=== PATIENT | male | born 1970 | race Hispanic/Latino ===

== ENCOUNTER 2016-05-23 12:25 | Day surgery (SDC) | payer BC ==
[~2016-05-23] VITALS: Ht 160 cm; Wt 65.7 kg
[~2016-05-23 12:25] MED LIST: ALCOHOL SWAB1 EACH TP; AMLODIPINE BESY10 MG PO; APRESOLINE25 MG PO; ASPIR 8181 M1 PO; ASPIR-LOW81 MG PO; ATORVASTATIN CA80 MG GT; ATORVASTATIN CA80 MG PO; BENADRYL25 MG PO; CALCITRIOL0.25 MCG PO; CALCIUM ACETAT667 M2 PO; CALCIUM ACETAT667 MG PO; CASTIVA COOLIN113 GM TP; CATAPRES0.1 MG PO; CATAPRES0.3 MG PO; CLONIDINE HCL0.1 MG PO; CLONIDINE HCL0.2 MG PO; CLONIDINE HCL0.3 MG PO; COMPAZINE10 MG PO; COREG25 M1 PO; COUMADIN2.5 MG PO; CRESTOR20 MG PO; DILANTIN100 MG PO; ENDOCET 5-3251 EACH PO; ERGOCALCIF50000 UNIT PO; GLUCOPHAGE500 MG PO; HEPARIN SO5000 UNITS SC; HYDRALAZINE HCL25 MG PO; HYDROCODON-ACE1 EAC7 PO; HYDROXYZINE PAM25 MG PO; LABETALOL HCL200 MG PO; LANTUS 3 M100 UNITS1 SC; LASIX40 MG PO; LEVEMIR FL100 UNIT/1 SC; LEVEMIR100 UNIT/2 SC; LEVETIRACETAM500 MG PO; LIPITOR80 MG PO; LISINOPRIL10 MG PO; LISINOPRIL20 MG PO; LO-DOSE ASPIRIN81 M1 PO; LONITEN2.5 MG PO; LOSARTAN POTASS50 MG PO; MINOXIDIL2.5 MG PO; MYCOSTATIN 100,60 ML PO; NEPHRO-VITE,1 TABLET PO; NEURONTIN400 MG PO; NOHOMEMEDS; NORVASC10 MG PO; NOVOLIN NPH,HU1 UNIT SC; NOVOLIN,HU100 UNITS/ SC; NOVOLIN,HU100 UNITS1 SC; NOVOLOG 10100 UNITS/ SC; NOVOLOG PE100 UNITS/ SC; PERCOCET 10/1 TABLET PO; PERCOCET 5/31 TABLET PO; PRINIVIL20 MG PO; PROAIR HFA8.5 GM IH; RELION MICRO MC; RELION THIN MC; RENA-VITE RX T1 EACH PO; ROCALTROL0.25 MCG PO; ROXICODONE5 MG PO; TRAMADOL HCL50 MG PO; TYLENOL EXTRA500 MG PO; TYLENOL REGULA325 MG PO; Tums,OsCal PO; VALSARTAN160 MG PO; VANCOMYCIN HCL1 GM IV; VENOFER100 MG/5 M IV; VICODIN,LORT1 TABLET PO; VISTARIL25 MG PO; VITAMIN D2000 UNIT PO; ZESTRIL40 MG PO; Zestril,Prinivil PO
[2016-05-23 12:55] VITALS: BP 185/99
[2016-05-23 13:44] LABS: EOSINOPHIL (%) 1.8 % (0-5); EOSINOPHIL COUNT 0.1 K/uL (0-0.3); HEMATOCRIT 28.7 % (38.0-50.0); IMMATURE GRANULOCYTE (%) 0.4 % (0.0-0.7); LYMPHOCYTE COUNT 0.7 K/uL (1.0-2.8); MCH 30.6 PG (29.0-34.0); MCHC 34.1 G/DL (30.0-36.0); MCV 89.7 FL (86-99); MEAN PLAT.VOLUME 11.2 uM^3 (9.0-12.4); MONOCYTE (%) 9.3 % (3-12); MONOCYTE COUNT 0.3 K/uL (0-0.8); NEUTROPHIL (%) 61.3 % (45-76); NEUTROPHIL COUNT 1.7 K/uL (1.8-6.4); PLATELET COUNT 149 K/uL (156-360); RBC DIS.WIDTH-CV 14.8 % (11.8-14.6); RBC DIS.WIDTH-SD 45.7 % (39-53); WHITE BLOOD COUNT 2.8 K/uL (4.1-10.2)
[2016-05-23 14:08] LABS: ANION GAP 13 MEQ/L (2-14); CHLORIDE 96 MEQ/L (99-109); GFR ESTIMATE (CALCULATED) 14 mL/min/; GLUCOSE 99 mg/dL (70-99); POTASSIUM 4.4 MEQ/L (3.7-5.4); SAMPLE HEMOLYSIS CHECK 0; SAMPLE ICTERIC CHECK 0; SAMPLE LIPEMIA CHECK 0; SODIUM 140 MEQ/L (136-147); UREA NITROGEN (BUN) 27 mg/dL (9-23)
[2016-05-23 15:02] LABS: METH RESISTANT S AUREUS PCR NEGATIVE (NEGATIVE)
[2016-05-23 15:13] LABS: PROBE CHECK PASS; SPECIMEN PROCESSING CONTROL PASS
[2016-05-23 17:14] LABS: POINT-OF-CARE METER ID UU13113675
[2016-05-23] MEDS ORDERED: OXAYDO5 MG PO (18:39)
[2016-05-23 20:32] LABS: POINT-OF-CARE METER ID UU13113675
[2016-05-23 21:43] VITALS: BP 173/90
== END 2016-05-23 22:38 | disposition home or self-care (01) ==
LOC: SDC 12:25
PROVIDERS: Surgery
DX: I12.0 Hypertensive chronic kidney disease with stage 5 chronic kidney disease or end stage renal disease (principal); E11.22 Type 2 diabetes mellitus with diabetic chronic kidney disease; N18.6 End stage renal disease; Z99.2 Dependence on renal dialysis; I97.638 Postprocedural hematoma of a circulatory system organ or structure following other circulatory system procedure; Z79.4 Long term (current) use of insulin
CPT/HCPCS: 80048; 82948; 85025; 87641; C1768; J0131; J0360; J0690; J1170; J1644; J2250; J2405; J2720; J2765; J3010; P9045

== ENCOUNTER 2016-06-17 08:39 | Inpatient (IN) | payer BC ==
[2016-06-17] VITALS (15 sets, daily range): BP systolic 119–195; BP diastolic 63–101
[~2016-06-17] VITALS: Ht 160 cm; Wt 61.9 kg
[~2016-06-17 08:39] MED LIST changes: +OXAYDO5 MG PO
[2016-06-17 08:56] LABS: BASE EXCESS 5.3 mEq/L (-3 to +3); CARBOXY HGB 1.9 % (0-5); COMMENTS - BLOOD GASES A+C+; CONTINUOUS POS AIRWAY PRESSURE 8 cm H2O; DEVICE NIV; FI02 100 %; METHEMOGLOBIN 0.8 % (0-1.5); MODE SPONT; PCO2 50 mm Hg (35-45); PO2 92 mm Hg (80-100); PRES. SUPPORT 10 CM/H2O; SITE RR; TOTAL RESP RATE 33 resp/min
[2016-06-17 09:15] LABS: ANION GAP 15 MEQ/L (2-14); CHLORIDE 98 mEq/L (99-109); CREATININE 7.2 mg/dL (0.6-1.3); GLUCOSE 108 mg/dL (70-99); ISTAT DEVICE 369301; POTASSIUM > 6.0 mEq/L (3.7-5.4); SODIUM 137 mEq/L (136-147); UREA NITROGEN (BUN) 36 mg/dL (9-23)
[2016-06-17 09:18] LABS: BASOPHIL COUNT 0.1 K/uL (0-0.1); EOSINOPHIL (%) 1.7 % (0-5); EOSINOPHIL COUNT 0.1 K/uL (0-0.3); HEMATOCRIT 33.9 % (38.0-50.0); IMMATURE GRANULOCYTE (%) 0.3 % (0.0-0.7); INSTRUMENT ABS NEUTROPHIL CT 5.9 K/uL; LYMPHOCYTE COUNT 0.8 K/uL (1.0-2.8); MCHC 32.4 G/DL (30.0-36.0); MEAN PLAT.VOLUME 10.2 uM^3 (9.0-12.4); MONOCYTE (%) 4.2 % (3-12); MONOCYTE COUNT 0.3 K/uL (0-0.8); NEUTROPHIL COUNT 5.9 K/uL (1.8-6.4); RBC DIS.WIDTH-CV 16.8 % (11.8-14.6); RBC DIS.WIDTH-SD 62.5 % (39-53); RED BLOOD COUNT 3.33 M/uL (4.00-5.50)
[2016-06-17 09:20] LABS: MCV 101.8 FL (86-99); PLATELET COUNT 250 K/uL (156-360); WHITE BLOOD COUNT 7.2 K/uL (4.1-10.2)
[2016-06-17 09:27] LABS: CHLORIDE 98 mEq/L (99-109); INTER. NORMALIZED RATIO 1.1; PROTHROMBIN TIME 10.7 (9.2-11.2); SODIUM 140 mEq/L (136-147)
[2016-06-17 09:29] LABS: GLUCOSE 107 mg/dL (70-99)
[2016-06-17 09:30] LABS: ANION GAP 14 MEQ/L (2-14)
[2016-06-17 09:31] LABS: TOTAL BILIRUBIN 0.5 mg/dL (0.0-1.0)
[2016-06-17 09:32] LABS: ALKALINE PHOSPHATASE 231 IU/L (3-129)
[2016-06-17 09:33] LABS: GFR ESTIMATE (CALCULATED) 8 mL/min/
[2016-06-17 09:34] LABS: UREA NITROGEN (BUN) 35 mg/dL (9-23)
[2016-06-17 09:37] LABS: POTASSIUM 6.4 mEq/L (3.7-5.4)
[2016-06-17 09:38] LABS: TROP-I INTERPRETATION NEGATIVE; TROPONIN-I < 0.01 ng/mL (0.0-0.30)
[2016-06-17 14:39] LABS: METH RESISTANT S AUREUS PCR NEGATIVE (NEGATIVE); PROBE CHECK PASS; SPECIMEN PROCESSING CONTROL PASS
[2016-06-17] MEDS ORDERED: LIPITOR80 MG PO (17:37)
[2016-06-17] MEDS ORDERED: APRESOLINE25 MG PO (17:38)
[2016-06-17] MEDS ORDERED: COMPAZINE10 MG PO (17:38)
[2016-06-17] MEDS ORDERED: LANTUS 3 M100 UNITS1 SC (17:39)
[2016-06-17] MEDS ORDERED: RENA-VITE RX T1 EACH PO (17:40)
[2016-06-17] MEDS ORDERED: ZESTRIL40 MG PO (17:40)
[2016-06-17] MEDS ORDERED: LO-DOSE ASPIRIN81 M2 PO (17:41)
[2016-06-17] MEDS ORDERED: NORVASC10 MG PO (17:41)
[2016-06-17] MEDS ORDERED: ULTRAM50 MG PO (17:41)
[2016-06-17] MEDS ORDERED: NOVOLOG PE100 UNITS/ SC (17:41)
[2016-06-17] MEDS ORDERED: LONITEN2.5 MG PO (17:42)
[2016-06-17] MEDS ORDERED: PROAIR HFA8.5 GM IH (17:42)
[2016-06-17] MEDS ORDERED: DILANTIN100 MG PO (17:42)
[2016-06-17] MEDS ORDERED: CATAPRES0.3 MG PO (17:42)
[2016-06-17] MEDS ORDERED: ALLERGY RELIEF10 M1 PO (17:43)
[2016-06-17] MEDS ORDERED: DERMACINRX EMP1 EACH TP (17:45)
[2016-06-17] MEDS ORDERED: PERCOCET 5/31 TABLET PO (17:46)
[2016-06-17 23:49] LABS: POINT-OF-CARE METER ID UU14162636
[2016-06-18] VITALS (9 sets, daily range): BP systolic 155–194; BP diastolic 80–107
[2016-06-18 07:35] LABS: POINT-OF-CARE METER ID UU14174216
[2016-06-18 10:04] LABS: Estimated Average Glucose 100 mg/dL (70-123)
[2016-06-18 10:05] LABS: HEMOGLOBIN A1c (GLYCOHEMOGLOB) 5.1 % HGB (Below 5.7)
[2016-06-18 10:57] LABS: HEMATOCRIT 27.3 % (38.0-50.0); MCH 32.6 PG (29.0-34.0); MCHC 32.6 G/DL (30.0-36.0); RBC DIS.WIDTH-CV 16.5 % (11.8-14.6); RBC DIS.WIDTH-SD 60.2 % (39-53); RED BLOOD COUNT 2.73 M/uL (4.00-5.50); WHITE BLOOD COUNT 5.2 K/uL (4.1-10.2)
[2016-06-18 11:02] LABS: ALKALINE PHOSPHATASE 189 IU/L (3-129); ANION GAP 9 MEQ/L (2-14); CHLORIDE 99 MEQ/L (99-109); GFR ESTIMATE (CALCULATED) 10 mL/min/; POTASSIUM 5.4 MEQ/L (3.7-5.4); SAMPLE HEMOLYSIS CHECK 0; SAMPLE ICTERIC CHECK 0; SAMPLE LIPEMIA CHECK 0; SODIUM 137 MEQ/L (136-147); TOTAL BILIRUBIN 0.5 MG/DL (0.0-1.0); UREA NITROGEN (BUN) 37 mg/dL (9-23)
[2016-06-18 11:05] LABS: GLUCOSE 203 mg/dL (70-99)
[2016-06-18 11:27] LABS: MEAN PLAT.VOLUME 10.3 uM^3 (9.0-12.4); PLAT.SUFFICIENCY ADEQUATE
[2016-06-18 11:29] LABS: PLATELET COUNT 170 K/uL (156-360)
[2016-06-18 15:58] LABS: TYPE OF FLUID PLEURAL
[2016-06-18 16:33] LABS: POINT-OF-CARE METER ID UU14174216
[2016-06-18 16:35] LABS: BODY FLUID LDH 103 IU/L; BODY FLUID PROTEIN 3.5 G/DL
[2016-06-18 17:48] LABS: GLUCOSE 136 mg/dL (70-99); LACTATE DEHYDROGENASE 215 IU/L (20-246)
[2016-06-18 18:04] LABS: BODY FLUID EOSINOPHILS 0 % (0-25); BODY FLUID RBC'S < 1000 /MM^3 (0-100); BODY FLUID WBC'S 286 /MM^3 (0-500); MONONUCLEAR WBC'S 0 %; POLYNUCLEAR WBC'S 100 % (0-25)
[2016-06-18 21:08] LABS: POINT-OF-CARE METER ID UU14174216
[2016-06-19] VITALS (7 sets, daily range): BP systolic 127–191; BP diastolic 58–91
[2016-06-19 05:53] LABS: HEMATOCRIT 29.3 % (38.0-50.0); MCH 31.9 PG (29.0-34.0); MCHC 33.1 G/DL (30.0-36.0); MCV 96.4 FL (86-99); MEAN PLAT.VOLUME 10.6 uM^3 (9.0-12.4); PLATELET COUNT 189 K/uL (156-360); RBC DIS.WIDTH-CV 15.7 % (11.8-14.6); RBC DIS.WIDTH-SD 55.7 % (39-53); RED BLOOD COUNT 3.04 M/uL (4.00-5.50); WHITE BLOOD COUNT 4.9 K/uL (4.1-10.2)
[2016-06-19 06:45] LABS: ANION GAP 11 MEQ/L (2-14); CHLORIDE 96 MEQ/L (99-109); GFR ESTIMATE (CALCULATED) 13 mL/min/; SAMPLE HEMOLYSIS CHECK 0; SAMPLE ICTERIC CHECK 0; SAMPLE LIPEMIA CHECK 0; SODIUM 137 MEQ/L (136-147); UREA NITROGEN (BUN) 27 mg/dL (9-23)
[2016-06-19 06:52] LABS: GLUCOSE 77 mg/dL (70-99); POTASSIUM 3.7 MEQ/L (3.7-5.4)
[2016-06-19 07:53] LABS: POINT-OF-CARE USER ID ENVKC36
[2016-06-19 11:16] LABS: POINT-OF-CARE METER ID UU14162508
[2016-06-19 15:53] LABS: POINT-OF-CARE METER ID UU14162508
[2016-06-19 21:33] LABS: POINT-OF-CARE METER ID UU14162508
[2016-06-20 03:34] VITALS: BP 143/69
[2016-06-20 06:45] LABS: POINT-OF-CARE METER ID UU14162508
[2016-06-20 07:31] LABS: HEMATOCRIT 30.1 % (38.0-50.0); MCH 32.6 PG (29.0-34.0); MCHC 33.9 G/DL (30.0-36.0); MCV 96.2 FL (86-99); MEAN PLAT.VOLUME 10.8 uM^3 (9.0-12.4); PLATELET COUNT 201 K/uL (156-360); RBC DIS.WIDTH-CV 15.7 % (11.8-14.6); RBC DIS.WIDTH-SD 55.3 % (39-53); RED BLOOD COUNT 3.13 M/uL (4.00-5.50); WHITE BLOOD COUNT 4.3 K/uL (4.1-10.2)
[2016-06-20 07:38] LABS: ANION GAP 14 MEQ/L (2-14); CHLORIDE 92 MEQ/L (99-109); GFR ESTIMATE (CALCULATED) 9 mL/min/; GLUCOSE 157 mg/dL (70-99); POTASSIUM 3.8 MEQ/L (3.7-5.4); SAMPLE HEMOLYSIS CHECK 0; SAMPLE ICTERIC CHECK 0; SAMPLE LIPEMIA CHECK 0; SODIUM 136 MEQ/L (136-147); UREA NITROGEN (BUN) 46 mg/dL (9-23)
[2016-06-20 07:58] VITALS: BP 185/95
[2016-06-20 10:47] LABS: HBSG INDEX 0.16
[2016-06-20 15:09] VITALS: BP 117/60
[2016-06-20 17:37] LABS: POINT-OF-CARE METER ID UU14162508
[2016-06-20 18:28] VITALS: BP 169/86
[2016-06-20 19:39] VITALS: BP 187/84
[2016-06-20 23:41] VITALS: BP 137/65
[2016-06-21 03:35] VITALS: BP 135/70
[2016-06-21 06:40] LABS: POINT-OF-CARE METER ID UU14162508
[2016-06-21 07:10] VITALS: BP 143/73
[2016-06-21 11:48] LABS: POINT-OF-CARE METER ID UU14162508
[2016-06-21 16:45] LABS: POINT-OF-CARE METER ID UU14162508
[2016-06-21 16:46] VITALS: BP 139/68
[2016-06-21] MEDS ORDERED: LONITEN2.5 MG PO (20:02)
[2016-06-21] MEDS ORDERED: LABETALOL HCL200 MG PO (20:02)
[2016-06-21] MEDS ORDERED: CALCIUM ACETAT667 MG PO (20:03)
[2016-06-21 21:26] LABS: POINT-OF-CARE METER ID UU14162508
[2016-06-21 23:05] VITALS: BP 119/62
[2016-06-22 06:45] LABS: POINT-OF-CARE METER ID UU14162508
[2016-06-22 06:57] VITALS: BP 155/82
[2016-06-22 10:31] LABS: BASOPHIL COUNT 0.1 K/uL (0-0.1); EOSINOPHIL (%) 4.8 % (0-5); EOSINOPHIL COUNT 0.3 K/uL (0-0.3); HEMATOCRIT 29.7 % (38.0-50.0); IMMATURE GRANULOCYTE (%) 0.4 % (0.0-0.7); INSTRUMENT ABS NEUTROPHIL CT 3.6 K/uL; LYMPHOCYTE COUNT 0.8 K/uL (1.0-2.8); MCH 32.6 PG (29.0-34.0); MCHC 34.7 G/DL (30.0-36.0); MONOCYTE (%) 9.2 % (3-12); MONOCYTE COUNT 0.5 K/uL (0-0.8); NEUTROPHIL (%) 68.2 % (45-76); NEUTROPHIL COUNT 3.6 K/uL (1.8-6.4); RBC DIS.WIDTH-CV 15.1 % (11.8-14.6); RBC DIS.WIDTH-SD 52.2 % (39-53); RED BLOOD COUNT 3.16 M/uL (4.00-5.50); WHITE BLOOD COUNT 5.2 K/uL (4.1-10.2)
[2016-06-22 10:43] LABS: ANION GAP 14 MEQ/L (2-14); CHLORIDE 92 MEQ/L (99-109); GFR ESTIMATE (CALCULATED) 8 mL/min/; GLUCOSE 124 mg/dL (70-99); POTASSIUM 4.7 MEQ/L (3.7-5.4); SAMPLE HEMOLYSIS CHECK 0; SAMPLE ICTERIC CHECK 0; SAMPLE LIPEMIA CHECK 0; SODIUM 131 MEQ/L (136-147); UREA NITROGEN (BUN) 45 mg/dL (9-23)
[2016-06-22 11:35] LABS: MEAN PLAT.VOLUME 11.4 uM^3 (9.0-12.4); PLATELET COUNT 172 K/uL (156-360)
[2016-06-22 15:28] VITALS: BP 123/63
[2016-06-22 17:13] LABS: POINT-OF-CARE METER ID UU14162508
[2016-06-22 21:16] LABS: POINT-OF-CARE METER ID UU14162508
[2016-06-23 00:25] VITALS: BP 115/64
[2016-06-23 06:53] LABS: POINT-OF-CARE METER ID UU14162508
[2016-06-23 08:19] VITALS: BP 132/84
[2016-06-23 12:02] LABS: POINT-OF-CARE METER ID UU14162508
[2016-06-23 15:55] VITALS: BP 172/92
== END 2016-06-23 16:30 | disposition home health service (06) | DRG 682 ==
LOC: EME → EDBD 08:39 → EDOF 11:59 → 4EAST 11:59 → 2EAST 11:59 → 4WEST 13:23 → 4EAST 06-18 05:27 → 2EAST 06-19 09:20
PROVIDERS: Emergency Medicine; Hospitalist; Internal Medicine; Internal Medicine Critical Care Medicine; Physician Assistant; Student in an Organized Health Care Education/Training Program
PROC: 5A09357 Assistance with Respiratory Ventilation, Less than 24 Consecutive Hours, Continuous Positive Airway Pressure (ICD-10-PCS; principal; 2016-06-17)
PROC: 5A1D60Z (ICD-10-PCS; 2016-06-17)
PROC: 0W9B3ZZ Drainage of Left Pleural Cavity, Percutaneous Approach (ICD-10-PCS; 2016-06-18)
PROC: 0W9B30Z Drainage of Left Pleural Cavity with Drainage Device, Percutaneous Approach (ICD-10-PCS; 2016-06-20)
PROC: 02PA33Z Removal of Infusion Device from Heart, Percutaneous Approach (ICD-10-PCS; 2016-06-21)
DX: N17.9 Acute kidney failure, unspecified (principal); J96.01 Acute respiratory failure with hypoxia; N18.6 End stage renal disease; I16.0 Hypertensive urgency; I13.2 Hypertensive heart and chronic kidney disease with heart failure and with stage 5 chronic kidney disease, or end stage renal disease; E11.22 Type 2 diabetes mellitus with diabetic chronic kidney disease; D63.1 Anemia in chronic kidney disease; Z99.2 Dependence on renal dialysis; I50.9 Heart failure, unspecified; K21.9 Gastro-esophageal reflux disease without esophagitis; G40.909 Epilepsy, unspecified, not intractable, without status epilepticus; J45.909 Unspecified asthma, uncomplicated; Z79.4 Long term (current) use of insulin; Z79.82 Long term (current) use of aspirin; Z86.73 Personal history of transient ischemic attack (TIA), and cerebral infarction without residual deficits; I08.1 Rheumatic disorders of both mitral and tricuspid valves; D50.9 Iron deficiency anemia, unspecified; I27.2 Other secondary pulmonary hypertension; J90 Pleural effusion, not elsewhere classified; N25.81 Secondary hyperparathyroidism of renal origin; E11.42 Type 2 diabetes mellitus with diabetic polyneuropathy; Z91.19 Patient's noncompliance with other medical treatment and regimen; Z87.891 Personal history of nicotine dependence
CPT/HCPCS: 36600; 71010; 71020; 80047; 80048; 80053; 80069; 82140; 82803; 82945; 82947 91; 82948; 83036; 83605; 83615; 83615 91; 83880; 83986 90; 84100; 84155; 84157; 84484; 84999; 85025; 85027; 85610; 87070; 87205; 87340; 87641; 89051; 93005; 94002; 99281; 99285; C1729; J0610; J0881; J1270; J1644; J1756; J1815; J2405; J3010; J7050; Q0164

== ENCOUNTER 2016-07-04 12:38 | Emergency (ER) | payer BC ==
[~2016-07-04] VITALS: Ht 190.5 cm; Wt 61.0 kg
[~2016-07-04 12:38] MED LIST changes: +ALLERGY RELIEF10 M1 PO; +DERMACINRX EMP1 EACH TP; +LO-DOSE ASPIRIN81 M2 PO; +ULTRAM50 MG PO
[2016-07-04 14:10] LABS: EOSINOPHIL (%) 0.4 % (0-5); HEMATOCRIT 30.8 % (38.0-50.0); IMMATURE GRANULOCYTE (%) 0.2 % (0.0-0.7); INSTRUMENT ABS NEUTROPHIL CT 3.8 K/uL; LYMPHOCYTE COUNT 0.2 K/uL (1.0-2.8); MCH 31.6 PG (29.0-34.0); MCHC 33.8 G/DL (30.0-36.0); MCV 93.6 FL (86-99); MEAN PLAT.VOLUME 10.2 uM^3 (9.0-12.4); MONOCYTE (%) 7.2 % (3-12); MONOCYTE COUNT 0.3 K/uL (0-0.8); NEUTROPHIL (%) 86.1 % (45-76); NEUTROPHIL COUNT 3.8 K/uL (1.8-6.4); PLATELET COUNT 217 K/uL (156-360); RBC DIS.WIDTH-CV 13.2 % (11.8-14.6); RED BLOOD COUNT 3.29 M/uL (4.00-5.50); WHITE BLOOD COUNT 4.5 K/uL (4.1-10.2)
[2016-07-04 14:18] LABS: CHLORIDE 92 mEq/L (99-109); POTASSIUM 3.8 mEq/L (3.7-5.4); SODIUM 135 mEq/L (136-147)
[2016-07-04 14:20] LABS: GLUCOSE 257 mg/dL (70-99)
[2016-07-04 14:22] LABS: ANION GAP 14 MEQ/L (2-14)
[2016-07-04 14:24] LABS: GFR ESTIMATE (CALCULATED) 19 mL/min/
[2016-07-04 14:25] LABS: UREA NITROGEN (BUN) 22 mg/dL (9-23)
[2016-07-04 14:31] LABS: TROP-I INTERPRETATION NEGATIVE; TROPONIN-I < 0.01 ng/mL (0.0-0.30)
[2016-07-04] MEDS ORDERED: TRAMADOL HCL50 MG PO (20:38)
[2016-07-04 20:52] VITALS: BP 147/80
== END 2016-07-04 20:53 | disposition home or self-care (01) ==
LOC: EME → EDBD 12:38 → EME 12:38
PROVIDERS: Physician Assistant
DX: J90 Pleural effusion, not elsewhere classified (principal); T85.898A Other specified complication of other internal prosthetic devices, implants and grafts, initial encounter; N19 Unspecified kidney failure; E11.65 Type 2 diabetes mellitus with hyperglycemia; Z99.2 Dependence on renal dialysis; I11.0 Hypertensive heart disease with heart failure; I50.9 Heart failure, unspecified; Z86.73 Personal history of transient ischemic attack (TIA), and cerebral infarction without residual deficits; Z79.84 Long term (current) use of oral hypoglycemic drugs
CPT/HCPCS: 71010; 71250; 80048; 81003; 83605; 84484; 85025; 93005; 99281; 99285; J2270; J2997

== ENCOUNTER 2016-07-11 17:37 | Inpatient (IN) | payer BC ==
[~2016-07-11] VITALS: Ht 167.6 cm; Wt 62.6 kg
[2016-07-11 18:58] LABS: EOSINOPHIL (%) 0.9 % (0-5); EOSINOPHIL COUNT 0.1 K/uL (0-0.3); HEMATOCRIT 25.9 % (38.0-50.0); IMMATURE GRANULOCYTE (%) 0.4 % (0.0-0.7); INSTRUMENT ABS NEUTROPHIL CT 5.6 K/uL; LYMPHOCYTE COUNT 0.8 K/uL (1.0-2.8); MCH 30.8 PG (29.0-34.0); MCHC 32.8 G/DL (30.0-36.0); MCV 93.8 FL (86-99); MEAN PLAT.VOLUME 10.1 uM^3 (9.0-12.4); MONOCYTE (%) 8.8 % (3-12); MONOCYTE COUNT 0.6 K/uL (0-0.8); NEUTROPHIL (%) 78.7 % (45-76); NEUTROPHIL COUNT 5.6 K/uL (1.8-6.4); PLATELET COUNT 305 K/uL (156-360); RBC DIS.WIDTH-CV 13.5 % (11.8-14.6); RBC DIS.WIDTH-SD 46.3 % (39-53); RED BLOOD COUNT 2.76 M/uL (4.00-5.50); WHITE BLOOD COUNT 7.1 K/uL (4.1-10.2)
[2016-07-11 19:07] LABS: CHLORIDE 96 mEq/L (99-109); POTASSIUM 3.8 mEq/L (3.7-5.4); SODIUM 140 mEq/L (136-147)
[2016-07-11 19:10] LABS: GLUCOSE 185 mg/dL (70-99)
[2016-07-11 19:11] LABS: ANION GAP 13 MEQ/L (2-14)
[2016-07-11 19:12] LABS: TOTAL BILIRUBIN 0.4 mg/dL (0.0-1.0)
[2016-07-11 19:13] LABS: ALKALINE PHOSPHATASE 112 IU/L (3-129); GFR ESTIMATE (CALCULATED) 18 mL/min/
[2016-07-11 19:14] LABS: UREA NITROGEN (BUN) 16 mg/dL (9-23)
[2016-07-11 19:19] LABS: TROP-I INTERPRETATION NEGATIVE; TROPONIN-I < 0.01 ng/mL (0.0-0.30)
[2016-07-11] MEDS ORDERED: AMOX TR-K CLV1 EAC4 PO (22:57)
[2016-07-12] VITALS (8 sets, daily range): BP systolic 101–210; BP diastolic 56–100
[2016-07-12 07:07] LABS: POINT-OF-CARE METER ID UU14149397
[2016-07-12 10:06] LABS: ANION GAP 8 MEQ/L (2-14); CHLORIDE 93 MEQ/L (99-109); GFR ESTIMATE (CALCULATED) 13 mL/min/; GLUCOSE 239 mg/dL (70-99); POTASSIUM 4.4 MEQ/L (3.7-5.4); SAMPLE HEMOLYSIS CHECK 0; SAMPLE ICTERIC CHECK 0; SAMPLE LIPEMIA CHECK 0; SODIUM 135 MEQ/L (136-147)
[2016-07-12 10:07] LABS: UREA NITROGEN (BUN) 25 mg/dL (9-23)
[2016-07-12 12:08] LABS: POINT-OF-CARE METER ID UU14149397
[2016-07-13 05:01] VITALS: BP 178/86
[2016-07-13 05:34] LABS: BASOPHIL COUNT 0.1 K/uL (0-0.1); EOSINOPHIL (%) 4.1 % (0-5); EOSINOPHIL COUNT 0.3 K/uL (0-0.3); HEMATOCRIT 27.3 % (38.0-50.0); IMMATURE GRANULOCYTE (%) 0.5 % (0.0-0.7); INSTRUMENT ABS NEUTROPHIL CT 5.7 K/uL; LYMPHOCYTE COUNT 0.9 K/uL (1.0-2.8); MCHC 32.2 G/DL (30.0-36.0); MCV 96.1 FL (86-99); MEAN PLAT.VOLUME 9.8 uM^3 (9.0-12.4); MONOCYTE (%) 7.7 % (3-12); MONOCYTE COUNT 0.6 K/uL (0-0.8); NEUTROPHIL (%) 75.4 % (45-76); NEUTROPHIL COUNT 5.7 K/uL (1.8-6.4); PLATELET COUNT 320 K/uL (156-360); RBC DIS.WIDTH-CV 13.9 % (11.8-14.6); RBC DIS.WIDTH-SD 49.1 % (39-53); RED BLOOD COUNT 2.84 M/uL (4.00-5.50); WHITE BLOOD COUNT 7.6 K/uL (4.1-10.2)
[2016-07-13 05:59] LABS: ANION GAP 16 MEQ/L (2-14); CHLORIDE 93 MEQ/L (99-109); GFR ESTIMATE (CALCULATED) 9 mL/min/; POTASSIUM 3.7 MEQ/L (3.7-5.4); SAMPLE HEMOLYSIS CHECK 0; SAMPLE ICTERIC CHECK 0; SAMPLE LIPEMIA CHECK 0; SODIUM 139 MEQ/L (136-147); UREA NITROGEN (BUN) 36 mg/dL (9-23)
[2016-07-13 06:00] LABS: GLUCOSE 44 mg/dL (70-99)
[2016-07-13 06:28] LABS: POINT-OF-CARE METER ID UU14188577
[2016-07-13 07:18] VITALS: BP 155/78
[2016-07-13 09:32] LABS: POINT-OF-CARE METER ID UU13113681
[2016-07-13 09:45] LABS: GLUCOSE 37 mg/dL (70-99)
[2016-07-13 09:52] LABS: POINT-OF-CARE METER ID UU13113681
[2016-07-13 10:31] LABS: POINT-OF-CARE METER ID UU13113681
[2016-07-13 11:09] LABS: POINT-OF-CARE METER ID UU13113681
[2016-07-13 17:18] VITALS: BP 127/67
[2016-07-13 20:02] VITALS: BP 107/54
[2016-07-14 00:42] VITALS: BP 123/65
[2016-07-14 04:10] VITALS: BP 128/72
[2016-07-14 08:58] LABS: HEMATOCRIT 26.7 % (38.0-50.0); MCH 30.9 PG (29.0-34.0); MCHC 32.2 G/DL (30.0-36.0); MEAN PLAT.VOLUME 9.8 uM^3 (9.0-12.4); PLATELET COUNT 356 K/uL (156-360); RBC DIS.WIDTH-CV 13.9 % (11.8-14.6); RBC DIS.WIDTH-SD 49.9 % (39-53); RED BLOOD COUNT 2.78 M/uL (4.00-5.50); WHITE BLOOD COUNT 8.2 K/uL (4.1-10.2)
[2016-07-14 09:22] LABS: ANION GAP 8 MEQ/L (2-14); CHLORIDE 93 MEQ/L (99-109); SAMPLE HEMOLYSIS CHECK 0; SAMPLE ICTERIC CHECK 0; SAMPLE LIPEMIA CHECK 0; UREA NITROGEN (BUN) 36 mg/dL (9-23)
[2016-07-14 09:26] LABS: GFR ESTIMATE (CALCULATED) 12 mL/min/; GLUCOSE 147 mg/dL (70-99); POTASSIUM 5.5 MEQ/L (3.7-5.4); SODIUM 132 MEQ/L (136-147)
[2016-07-14 09:45] VITALS: BP 154/73
[2016-07-14 17:00] VITALS: BP 143/76
[2016-07-14 19:43] VITALS: BP 145/76
[2016-07-14 21:41] LABS: POINT-OF-CARE METER ID UU14188577
[2016-07-14 23:12] VITALS: BP 120/59
[2016-07-15 03:15] VITALS: BP 125/66
[2016-07-15 06:23] LABS: POINT-OF-CARE METER ID UU14188577
[2016-07-15 08:12] VITALS: BP 172/81
[2016-07-15 12:02] LABS: ANION GAP 13 MEQ/L (2-14); CHLORIDE 90 MEQ/L (99-109); GFR ESTIMATE (CALCULATED) 9 mL/min/; GLUCOSE 156 mg/dL (70-99); POTASSIUM 5.5 MEQ/L (3.7-5.4); SAMPLE HEMOLYSIS CHECK 0; SAMPLE ICTERIC CHECK 0; SAMPLE LIPEMIA CHECK 0; SODIUM 130 MEQ/L (136-147)
[2016-07-15 12:04] LABS: UREA NITROGEN (BUN) 61 mg/dL (9-23)
[2016-07-15 16:41] VITALS: BP 151/77
[2016-07-15 21:00] VITALS: BP 181/89
[2016-07-15 23:48] LABS: POINT-OF-CARE METER ID UU14188577
[2016-07-16] VITALS (7 sets, daily range): BP systolic 121–183; BP diastolic 59–90
[2016-07-16 08:34] LABS: POINT-OF-CARE METER ID UU13113681; POINT-OF-CARE USER ID DROKMM72
[2016-07-16 08:44] LABS: BASOPHIL COUNT 0.1 K/uL (0-0.1); EOSINOPHIL (%) 2.2 % (0-5); EOSINOPHIL COUNT 0.2 K/uL (0-0.3); HEMATOCRIT 24.8 % (38.0-50.0); IMMATURE GRANULOCYTE (%) 0.3 % (0.0-0.7); INSTRUMENT ABS NEUTROPHIL CT 7.4 K/uL; LYMPHOCYTE COUNT 0.8 K/uL (1.0-2.8); MCH 29.7 PG (29.0-34.0); MCHC 31.9 G/DL (30.0-36.0); MCV 93.2 FL (86-99); MEAN PLAT.VOLUME 9.9 uM^3 (9.0-12.4); MONOCYTE (%) 6.1 % (3-12); MONOCYTE COUNT 0.6 K/uL (0-0.8); NEUTROPHIL (%) 82.3 % (45-76); NEUTROPHIL COUNT 7.4 K/uL (1.8-6.4); PLATELET COUNT 370 K/uL (156-360); RBC DIS.WIDTH-CV 14.1 % (11.8-14.6); RBC DIS.WIDTH-SD 47.4 % (39-53); RED BLOOD COUNT 2.66 M/uL (4.00-5.50)
[2016-07-16 09:09] LABS: ANION GAP 12 MEQ/L (2-14); CHLORIDE 92 MEQ/L (99-109); POTASSIUM 5.3 MEQ/L (3.7-5.4); SAMPLE HEMOLYSIS CHECK 0; SAMPLE ICTERIC CHECK 0; SAMPLE LIPEMIA CHECK 0; SODIUM 131 MEQ/L (136-147); UREA NITROGEN (BUN) 82 mg/dL (9-23)
[2016-07-16 09:10] LABS: GFR ESTIMATE (CALCULATED) 7 mL/min/; GLUCOSE 98 mg/dL (70-99)
[2016-07-16 09:13] LABS: ANION GAP 14 MEQ/L (2-14); CHLORIDE 92 MEQ/L (99-109); POTASSIUM 5.5 MEQ/L (3.7-5.4); SAMPLE HEMOLYSIS CHECK 0; SAMPLE ICTERIC CHECK 0; SAMPLE LIPEMIA CHECK 0; SODIUM 131 MEQ/L (136-147)
[2016-07-16 09:20] LABS: GFR ESTIMATE (CALCULATED) 7 mL/min/; GLUCOSE 95 mg/dL (70-99); UREA NITROGEN (BUN) 80 mg/dL (9-23)
[2016-07-16 10:46] LABS: HBSG INDEX 0.19
[2016-07-16 11:40] LABS: POINT-OF-CARE METER ID UU13113681; POINT-OF-CARE USER ID DROKMM72
[2016-07-16 11:53] LABS: POINT-OF-CARE METER ID UU13113681; POINT-OF-CARE USER ID DROKMM72
[2016-07-17 03:39] VITALS: BP 155/74
[2016-07-17 05:21] LABS: HEMATOCRIT 24.7 % (38.0-50.0); MCH 30.3 PG (29.0-34.0); MCV 94.6 FL (86-99); MEAN PLAT.VOLUME 9.7 uM^3 (9.0-12.4); PLATELET COUNT 381 K/uL (156-360); RBC DIS.WIDTH-CV 13.7 % (11.8-14.6); RBC DIS.WIDTH-SD 47.6 % (39-53); RED BLOOD COUNT 2.61 M/uL (4.00-5.50); WHITE BLOOD COUNT 6.4 K/uL (4.1-10.2)
[2016-07-17 05:58] LABS: ANION GAP 10 MEQ/L (2-14); CHLORIDE 96 MEQ/L (99-109); GFR ESTIMATE (CALCULATED) 12 mL/min/; GLUCOSE 132 mg/dL (70-99); POTASSIUM 4.6 MEQ/L (3.7-5.4); SAMPLE HEMOLYSIS CHECK 0; SAMPLE ICTERIC CHECK 0; SAMPLE LIPEMIA CHECK 0; SODIUM 136 MEQ/L (136-147); UREA NITROGEN (BUN) 45 mg/dL (9-23)
[2016-07-17 08:16] VITALS: BP 154/75
[2016-07-17] MEDS ORDERED: LEVEMIR100 UNIT/2 SC ×2 (11:02→11:56)
[2016-07-17] MEDS ORDERED: CEFTIN500 MG PO ×2 (11:02→11:57)
[2016-07-17] MEDS ORDERED: ARANESP100 MCG/0. IV (11:02)
[2016-07-17] MEDS ORDERED: LABETALOL HCL100 MG PO (11:02)
[2016-07-17 12:12] VITALS: BP 153/73
[2016-07-18 11:23] LABS: POINT-OF-CARE METER ID UU13113681
== END 2016-07-17 14:41 | disposition home health service (06) | DRG 186 ==
LOC: EME 17:37 → EDOF 07-12 00:40 → 3EAST 07-12 00:40
PROVIDERS: Emergency Medicine; Hospitalist; Internal Medicine; Internal Medicine Nephrology; Nurse Practitioner Adult Health; Physician Assistant
PROC: 5A1D60Z (ICD-10-PCS; principal; 2016-07-13)
PROC: 0B9P30Z Drainage of Left Pleura with Drainage Device, Percutaneous Approach (ICD-10-PCS; 2016-07-16)
DX: J90 Pleural effusion, not elsewhere classified (principal); J18.9 Pneumonia, unspecified organism; N25.81 Secondary hyperparathyroidism of renal origin; E11.42 Type 2 diabetes mellitus with diabetic polyneuropathy; I12.0 Hypertensive chronic kidney disease with stage 5 chronic kidney disease or end stage renal disease; N18.6 End stage renal disease; R06.02 Shortness of breath; I42.9 Cardiomyopathy, unspecified; Y95 Nosocomial condition; R07.81 Pleurodynia; E78.5 Hyperlipidemia, unspecified; G40.909 Epilepsy, unspecified, not intractable, without status epilepticus; D53.9 Nutritional anemia, unspecified; F41.9 Anxiety disorder, unspecified; Z96.89 Presence of other specified functional implants; Z86.73 Personal history of transient ischemic attack (TIA), and cerebral infarction without residual deficits; Z87.891 Personal history of nicotine dependence; Z99.2 Dependence on renal dialysis; Z79.4 Long term (current) use of insulin; E11.649 Type 2 diabetes mellitus with hypoglycemia without coma
CPT/HCPCS: 32560; 71010; 71020; 71250; 74176; 80048; 80053; 80069; 81003; 82947 91; 82948; 83605; 84100; 84484; 85025; 85025 91; 85027; 87040; 87070; 87075; 87077; 87147; 87186; 87205; 87340; 87449; 87502; 93005; 94640; 94640 76; 94799; 99202; 99281; 99285; J0360; J0456; J0692; J0881; J1270; J1644; J1815; J1940; J2270; J2405; J2543; J7030; J7050

== ENCOUNTER 2016-07-19 13:12 | Inpatient (IN) | payer BC ==
[~2016-07-19] VITALS: Ht 167.6 cm; Wt 61.8 kg
[~2016-07-19 13:12] MED LIST changes: +AMOX TR-K CLV1 EAC4 PO; +ARANESP100 MCG/0. IV; +CEFTIN500 MG PO; +LABETALOL HCL100 MG PO
[2016-07-19 14:12] LABS: EOSINOPHIL (%) 1.4 % (0-5); EOSINOPHIL COUNT 0.1 K/uL (0-0.3); HEMATOCRIT 22.5 % (38.0-50.0); IMMATURE GRANULOCYTE (%) 0.3 % (0.0-0.7); INSTRUMENT ABS NEUTROPHIL CT 6.1 K/uL; LYMPHOCYTE COUNT 0.9 K/uL (1.0-2.8); MCH 30.7 PG (29.0-34.0); MCHC 32.4 G/DL (30.0-36.0); MCV 94.5 FL (86-99); MEAN PLAT.VOLUME 9.3 uM^3 (9.0-12.4); MONOCYTE (%) 7.7 % (3-12); MONOCYTE COUNT 0.6 K/uL (0-0.8); NEUTROPHIL (%) 78.9 % (45-76); NEUTROPHIL COUNT 6.1 K/uL (1.8-6.4); PLATELET COUNT 330 K/uL (156-360); RBC DIS.WIDTH-CV 14.1 % (11.8-14.6); RBC DIS.WIDTH-SD 47.7 % (39-53); RED BLOOD COUNT 2.38 M/uL (4.00-5.50); WHITE BLOOD COUNT 7.7 K/uL (4.1-10.2)
[2016-07-19 14:21] LABS: CHLORIDE 90 mEq/L (99-109); POTASSIUM 4.7 mEq/L (3.7-5.4); SODIUM 133 mEq/L (136-147)
[2016-07-19 14:23] LABS: GLUCOSE 165 mg/dL (70-99)
[2016-07-19 14:24] LABS: ANION GAP 12 MEQ/L (2-14)
[2016-07-19 14:27] LABS: GFR ESTIMATE (CALCULATED) 13 mL/min/; UREA NITROGEN (BUN) 47 mg/dL (9-23)
[2016-07-19 14:31] LABS: INTER. NORMALIZED RATIO 1.3; PROTHROMBIN TIME 12.9 (9.2-11.2); PTT 36.7 (25-32)
[2016-07-19 14:32] LABS: TROP-I INTERPRETATION NEGATIVE; TROPONIN-I < 0.01 ng/mL (0.0-0.30)
[2016-07-19 17:19] VITALS: BP 191/98
[2016-07-19 20:00] VITALS: BP 178/86
[2016-07-20] VITALS: BP 153/80
[2016-07-20 04:00] VITALS: BP 142/78
[2016-07-20 07:02] LABS: EOSINOPHIL (%) 2.3 % (0-5); EOSINOPHIL COUNT 0.1 K/uL (0-0.3); HEMATOCRIT 22.6 % (38.0-50.0); IMMATURE GRANULOCYTE (%) 0.3 % (0.0-0.7); INSTRUMENT ABS NEUTROPHIL CT 4.5 K/uL; MCH 30.4 PG (29.0-34.0); MCHC 31.9 G/DL (30.0-36.0); MCV 95.4 FL (86-99); MEAN PLAT.VOLUME 9.7 uM^3 (9.0-12.4); MONOCYTE (%) 8.2 % (3-12); MONOCYTE COUNT 0.5 K/uL (0-0.8); NEUTROPHIL COUNT 4.5 K/uL (1.8-6.4); PLATELET COUNT 310 K/uL (156-360); RBC DIS.WIDTH-CV 14.2 % (11.8-14.6); RBC DIS.WIDTH-SD 49.5 % (39-53); RED BLOOD COUNT 2.37 M/uL (4.00-5.50); WHITE BLOOD COUNT 6.1 K/uL (4.1-10.2)
[2016-07-20 07:30] LABS: ANION GAP 13 MEQ/L (2-14); CHLORIDE 91 MEQ/L (99-109); GLUCOSE 124 mg/dL (70-99); POTASSIUM 5.2 MEQ/L (3.7-5.4); SAMPLE HEMOLYSIS CHECK 0; SAMPLE ICTERIC CHECK 0; SAMPLE LIPEMIA CHECK 0; SODIUM 133 MEQ/L (136-147); UREA NITROGEN (BUN) 62 mg/dL (9-23)
[2016-07-20 07:32] LABS: GFR ESTIMATE (CALCULATED) 11 mL/min/; VANCOMYCIN, TROUGH 19.5 MCG/ML (10-20)
[2016-07-20 08:26] VITALS: BP 147/77
[2016-07-20 11:06] VITALS: BP 129/71
[2016-07-20 15:20] VITALS: BP 143/74
[2016-07-20 19:56] LABS: POINT-OF-CARE METER ID UU13113681; POINT-OF-CARE USER ID DROKMM72
[2016-07-20 20:45] VITALS: BP 181/85
[2016-07-21 03:47] VITALS: BP 140/77
[2016-07-21 06:19] LABS: HEMATOCRIT 23.7 % (38.0-50.0); MCH 30.3 PG (29.0-34.0); MCHC 32.5 G/DL (30.0-36.0); MCV 93.3 FL (86-99); MEAN PLAT.VOLUME 9.7 uM^3 (9.0-12.4); PLATELET COUNT 342 K/uL (156-360); RBC DIS.WIDTH-CV 14.2 % (11.8-14.6); RBC DIS.WIDTH-SD 48.7 % (39-53); RED BLOOD COUNT 2.54 M/uL (4.00-5.50); WHITE BLOOD COUNT 6.5 K/uL (4.1-10.2)
[2016-07-21 06:48] LABS: ANION GAP 9 MEQ/L (2-14); CHLORIDE 95 MEQ/L (99-109); GFR ESTIMATE (CALCULATED) 19 mL/min/; GLUCOSE 139 mg/dL (70-99); POTASSIUM 4.2 MEQ/L (3.7-5.4); SAMPLE HEMOLYSIS CHECK 0; SAMPLE ICTERIC CHECK 0; SAMPLE LIPEMIA CHECK 0; SODIUM 135 MEQ/L (136-147)
[2016-07-21 06:49] LABS: UREA NITROGEN (BUN) 28 mg/dL (9-23)
[2016-07-21 08:32] VITALS: BP 184/92
[2016-07-21 11:48] VITALS: BP 123/68
[2016-07-21] MEDS ORDERED: PROVENTIL,2.5 MG/3 M IH (14:10)
[2016-07-21] MEDS ORDERED: NEBULIZER MC (14:10)
[2016-07-21] MEDS ORDERED: AUGMENTIN500 MG PO (14:10)
== END 2016-07-21 19:00 | disposition home or self-care (01) | DRG 193 ==
LOC: EME → EDBD 13:12 → EDOF 15:07 → 5SOUTH 15:07
PROVIDERS: Emergency Medicine; Internal Medicine; Physician Assistant Medical
PROC: 5A1D00Z (ICD-10-PCS; principal; 2016-07-20)
PROC: 30233N1 Transfusion of Nonautologous Red Blood Cells into Peripheral Vein, Percutaneous Approach (ICD-10-PCS; 2016-07-20)
DX: J18.9 Pneumonia, unspecified organism (principal); N18.6 End stage renal disease; J90 Pleural effusion, not elsewhere classified; I12.0 Hypertensive chronic kidney disease with stage 5 chronic kidney disease or end stage renal disease; E87.1 Hypo-osmolality and hyponatremia; J98.11 Atelectasis; I50.32 Chronic diastolic (congestive) heart failure; N25.81 Secondary hyperparathyroidism of renal origin; I42.9 Cardiomyopathy, unspecified; R09.02 Hypoxemia; E78.5 Hyperlipidemia, unspecified; E11.21 Type 2 diabetes mellitus with diabetic nephropathy; J45.909 Unspecified asthma, uncomplicated; K21.9 Gastro-esophageal reflux disease without esophagitis; E11.22 Type 2 diabetes mellitus with diabetic chronic kidney disease; G89.29 Other chronic pain; D63.1 Anemia in chronic kidney disease; G40.909 Epilepsy, unspecified, not intractable, without status epilepticus; Z99.2 Dependence on renal dialysis; Z91.14 Patient's other noncompliance with medication regimen; Z60.2 Problems related to living alone; Z91.128 Patient's intentional underdosing of medication regimen for other reason; Z86.73 Personal history of transient ischemic attack (TIA), and cerebral infarction without residual deficits; Z79.4 Long term (current) use of insulin; Z83.3 Family history of diabetes mellitus; Z82.49 Family history of ischemic heart disease and other diseases of the circulatory system
CPT/HCPCS: 71010; 80048; 80069; 80202; 82948; 84484; 85025; 85027; 85610; 85730; 86900; 86901; 86920; 87040; 87070; 87205; 87449; 93005; 94010; 94640; 94640 76; 94760; 99202; 99281; 99285; J0696; J1270; J1644; J1815; J2543; J3370; J7030; J7050; P9016

== ENCOUNTER 2016-07-29 08:42 | Inpatient (IN) | payer BC ==
[~2016-07-29] VITALS: Ht 188 cm; Wt 63.9 kg
[~2016-07-29 08:42] MED LIST changes: +AUGMENTIN500 MG PO; +NEBULIZER MC; +PROVENTIL,2.5 MG/3 M IH
[2016-07-29 10:02] LABS: EOSINOPHIL (%) 9.2 % (0-5); EOSINOPHIL COUNT 0.8 K/uL (0-0.3); HEMATOCRIT 23.9 % (38.0-50.0); IMMATURE GRANULOCYTE (%) 0.4 % (0.0-0.7); INSTRUMENT ABS NEUTROPHIL CT 6.4 K/uL; LYMPHOCYTE COUNT 0.7 K/uL (1.0-2.8); MCH 30.2 PG (29.0-34.0); MCHC 32.2 G/DL (30.0-36.0); MCV 93.7 FL (86-99); MONOCYTE (%) 5.4 % (3-12); MONOCYTE COUNT 0.5 K/uL (0-0.8); NEUTROPHIL (%) 76.7 % (45-76); NEUTROPHIL COUNT 6.4 K/uL (1.8-6.4); PLATELET COUNT 250 K/uL (156-360); RBC DIS.WIDTH-SD 47.3 % (39-53); RED BLOOD COUNT 2.55 M/uL (4.00-5.50); WHITE BLOOD COUNT 8.4 K/uL (4.1-10.2)
[2016-07-29 10:12] LABS: CHLORIDE 92 mEq/L (99-109); POTASSIUM 4.6 mEq/L (3.7-5.4); SODIUM 134 mEq/L (136-147)
[2016-07-29 10:14] LABS: GLUCOSE 228 mg/dL (70-99)
[2016-07-29 10:15] LABS: ANION GAP 12 MEQ/L (2-14)
[2016-07-29 10:18] LABS: GFR ESTIMATE (CALCULATED) 11 mL/min/
[2016-07-29 10:19] LABS: UREA NITROGEN (BUN) 53 mg/dL (9-23)
[2016-07-29 10:28] LABS: TROP-I INTERPRETATION NEGATIVE; TROPONIN-I < 0.01 ng/mL (0.0-0.30)
[2016-07-29] MEDS ORDERED: CALCIUM ACETAT667 MG PO (13:40)
[2016-07-29] MEDS ORDERED: CEFTIN500 MG PO (13:41)
[2016-07-29 17:01] LABS: TROP-I INTERPRETATION NEGATIVE; TROPONIN-I < 0.01 ng/mL (0.0-0.30)
[2016-07-29 19:27] VITALS: BP 135/73
[2016-07-29 22:27] LABS: TROP-I INTERPRETATION NEGATIVE; TROPONIN-I < 0.01 ng/mL (0.0-0.30)
[2016-07-29 22:37] VITALS: BP 138/74
[2016-07-29 23:00] LABS: POINT-OF-CARE METER ID UU13113725; POINT-OF-CARE USER ID AHSUCEG
[2016-07-30] VITALS (7 sets, daily range): BP systolic 93–165; BP diastolic 51–79
[2016-07-30 05:56] LABS: POINT-OF-CARE METER ID UU13113725
[2016-07-30 09:21] LABS: HEMATOCRIT 23.7 % (38.0-50.0); MCH 30.3 PG (29.0-34.0); MCHC 32.1 G/DL (30.0-36.0); MCV 94.4 FL (86-99); MEAN PLAT.VOLUME 9.6 uM^3 (9.0-12.4); PLATELET COUNT 253 K/uL (156-360); RBC DIS.WIDTH-CV 14.3 % (11.8-14.6); RBC DIS.WIDTH-SD 48.4 % (39-53); RED BLOOD COUNT 2.51 M/uL (4.00-5.50); WHITE BLOOD COUNT 8.9 K/uL (4.1-10.2)
[2016-07-30 09:39] LABS: ANION GAP 9 MEQ/L (2-14); CHLORIDE 93 MEQ/L (99-109); POTASSIUM 4.6 MEQ/L (3.7-5.4); SAMPLE HEMOLYSIS CHECK 0; SAMPLE ICTERIC CHECK 0; SAMPLE LIPEMIA CHECK 0; SODIUM 132 MEQ/L (136-147)
[2016-07-30 09:45] LABS: GFR ESTIMATE (CALCULATED) 12 mL/min/; GLUCOSE 251 mg/dL (70-99); UREA NITROGEN (BUN) 44 mg/dL (9-23)
[2016-07-30 20:58] LABS: POINT-OF-CARE METER ID UU13113725
[2016-07-31 07:30] VITALS: BP 144/79
[2016-07-31 15:23] VITALS: BP 120/69
[2016-07-31 20:55] VITALS: BP 145/80
[2016-07-31 22:07] VITALS: BP 145/72
[2016-07-31 23:52] VITALS: BP 138/61
[2016-08-01 05:55] LABS: POINT-OF-CARE METER ID UU13113725
[2016-08-01 08:36] LABS: BASOPHIL COUNT 0.1 K/uL (0-0.1); EOSINOPHIL (%) 19.7 % (0-5); EOSINOPHIL COUNT 1.6 K/uL (0-0.3); HEMATOCRIT 23.8 % (38.0-50.0); IMMATURE GRANULOCYTE (%) 0.4 % (0.0-0.7); INSTRUMENT ABS NEUTROPHIL CT 4.5 K/uL; LYMPHOCYTE COUNT 1.1 K/uL (1.0-2.8); MCH 31.1 PG (29.0-34.0); MCHC 33.6 G/DL (30.0-36.0); MCV 92.6 FL (86-99); MONOCYTE (%) 8.9 % (3-12); MONOCYTE COUNT 0.7 K/uL (0-0.8); NEUTROPHIL (%) 55.8 % (45-76); NEUTROPHIL COUNT 4.5 K/uL (1.8-6.4); PLATELET COUNT 273 K/uL (156-360); RBC DIS.WIDTH-CV 14.2 % (11.8-14.6); RBC DIS.WIDTH-SD 47.8 % (39-53); RED BLOOD COUNT 2.57 M/uL (4.00-5.50); WHITE BLOOD COUNT 8.1 K/uL (4.1-10.2)
[2016-08-01 08:40] LABS: ANION GAP 11 MEQ/L (2-14); CHLORIDE 90 MEQ/L (99-109); POTASSIUM 4.6 MEQ/L (3.7-5.4); SAMPLE HEMOLYSIS CHECK 0; SAMPLE ICTERIC CHECK 0; SAMPLE LIPEMIA CHECK 0; SODIUM 128 MEQ/L (136-147)
[2016-08-01 09:37] LABS: GFR ESTIMATE (CALCULATED) 11 mL/min/; GLUCOSE 273 mg/dL (70-99); UREA NITROGEN (BUN) 66 mg/dL (9-23)
[2016-08-01 15:11] VITALS: BP 105/57
[2016-08-01 21:00] VITALS: BP 108/50
[2016-08-01 22:43] VITALS: BP 132/62
[2016-08-02 07:05] VITALS: BP 158/79
== END 2016-08-02 15:49 | disposition home health service (06) | DRG 640 ==
LOC: EME 08:42 → EDOF 12:40 → 5EAST 12:40
PROVIDERS: Emergency Medicine; Hospitalist; Internal Medicine; Internal Medicine Nephrology; Nurse Practitioner Family
PROC: 5A1D60Z (ICD-10-PCS; principal; 2016-07-30)
PROC: 0W9B3ZX Drainage of Left Pleural Cavity, Percutaneous Approach, Diagnostic (ICD-10-PCS; 2016-07-31)
DX: E87.79 Other fluid overload (principal); I13.2 Hypertensive heart and chronic kidney disease with heart failure and with stage 5 chronic kidney disease, or end stage renal disease; J90 Pleural effusion, not elsewhere classified; J81.1 Chronic pulmonary edema; N25.81 Secondary hyperparathyroidism of renal origin; R60.9 Edema, unspecified; N18.6 End stage renal disease; Z99.2 Dependence on renal dialysis; G40.909 Epilepsy, unspecified, not intractable, without status epilepticus; D63.1 Anemia in chronic kidney disease; J45.909 Unspecified asthma, uncomplicated; Z87.891 Personal history of nicotine dependence; E78.5 Hyperlipidemia, unspecified; Z86.73 Personal history of transient ischemic attack (TIA), and cerebral infarction without residual deficits; E11.22 Type 2 diabetes mellitus with diabetic chronic kidney disease; I50.9 Heart failure, unspecified; E83.39 Other disorders of phosphorus metabolism; J98.11 Atelectasis
CPT/HCPCS: 71020; 80048; 80069; 82948; 84484; 85025; 85027; 87040; 87070; 87075; 87205; 93005; 93306; 94010; 94640; 94640 76; 94799; 99202; 99281; 99285; J0881; J1270; J1644; J1756; J1815; J2543; J3370; J7050

== ENCOUNTER 2017-05-03 12:36 | Day surgery (SDC) | payer BC ==
[~2017-05-03] VITALS: Ht 165.1 cm; Wt 60.0 kg
[~2017-05-03 12:36] MED LIST changes: +NORMODYNE,TRAN200 MG PO
[2017-05-03 13:40] LABS: HEMATOCRIT 31.7 % (38.0-50.0); HEMOGLOBIN 10.8 G/DL (12.5-16.6); MCH 32.4 PG (29.0-34.0); MCHC 34.1 G/DL (30.0-36.0); MCV 95.2 FL (86-99); PLATELET COUNT 165 K/uL (156-360); RBC DIS.WIDTH-CV 12.9 % (11.8-14.6); RBC DIS.WIDTH-SD 44.4 % (39-53); RED BLOOD COUNT 3.33 M/uL (4.00-5.50); WHITE BLOOD COUNT 4.2 K/uL (4.1-10.2)
[2017-05-03 13:45] LABS: CHLORIDE 87 MEQ/L (99-109); POTASSIUM 5.1 MEQ/L (3.7-5.4); SODIUM 131 MEQ/L (136-147)
[2017-05-03 13:50] LABS: CREATININE 8.5 MG/DL (0.6-1.3); GFR ESTIMATE (CALCULATED) 7 mL/min/ (58.99-99999); GLUCOSE 234 mg/dL (70-99); UREA NITROGEN (BUN) 98 mg/dL (9-23)
[2017-05-03 14:01] VITALS: BP 174/102
[2017-05-03] MEDS ORDERED: NORCO 5/3251 TABLET PO (17:43)
[2017-05-03 22:10] VITALS: BP 185/80
== END 2017-05-03 22:15 | disposition home or self-care (01) ==
LOC: SDC 12:36
PROVIDERS: Surgery
PROC: 0WHG43Z Insertion of Infusion Device into Peritoneal Cavity, Percutaneous Endoscopic Approach (ICD-10-PCS; principal; 2017-05-03)
DX: I12.0 Hypertensive chronic kidney disease with stage 5 chronic kidney disease or end stage renal disease (principal); E11.22 Type 2 diabetes mellitus with diabetic chronic kidney disease; N18.6 End stage renal disease; Z99.2 Dependence on renal dialysis
CPT/HCPCS: 80048; 82948; 85027; 87641; 93005; C1750; J0690; J1170; J2405; J2710; J2765; J3010; J3370; S0020

== ENCOUNTER 2017-06-19 17:12 | Inpatient (IN) | payer BC ==
[~2017-06-19] VITALS: Ht 182.9 cm; Wt 66.1 kg
[~2017-06-19 17:12] MED LIST changes: +NORCO 5/3251 TABLET PO
[2017-06-19 17:40] LABS: HEMOGLOBIN 12.5 G/DL (12.5-16.6); MCHC 32.9 G/DL (30.0-36.0); MCV 97.2 FL (86-99); PLATELET COUNT 150 K/uL (156-360); RBC DIS.WIDTH-CV 13.3 % (11.8-14.6); RBC DIS.WIDTH-SD 47.2 % (39-53); RED BLOOD COUNT 3.91 M/uL (4.00-5.50); WHITE BLOOD COUNT 6.6 K/uL (4.1-10.2)
[2017-06-19 17:50] LABS: CHLORIDE 90 mEq/L (99-109); SODIUM 135 mEq/L (136-147)
[2017-06-19 17:52] LABS: GLUCOSE 202 mg/dL (70-99)
[2017-06-19 17:56] LABS: CREATININE 8.5 mg/dL (0.6-1.3); GFR ESTIMATE (CALCULATED) 7 mL/min/ (58.99-99999)
[2017-06-19 17:57] LABS: UREA NITROGEN (BUN) 61 mg/dL (9-23)
[2017-06-19 18:03] LABS: TROP-I INTERPRETATION NEGATIVE; TROPONIN-I < 0.01 ng/mL (0.0-0.30)
[2017-06-19 18:10] LABS: POTASSIUM 6.4 mEq/L (3.7-5.4)
[2017-06-19] MEDS ORDERED: ZOFRAN4 MG PO (20:23)
[2017-06-19] MEDS ORDERED: CALCIUM ACETAT667 MG PO (20:23)
[2017-06-19 20:44] LABS: BASE EXCESS 7.2 mEq/L (-3 to +3); BICARBONATE 31.2 mEq/L (22-26); CARBOXY HGB 1.3 % (0-5); METHEMOGLOBIN 0.4 % (0-1.5); PO2 84 mm Hg (80-100); pH 7.49 (7.35-7.45)
[2017-06-19 20:46] LABS: PCO2 41 mm Hg (35-45)
[2017-06-19 20:47] LABS: COMMENTS - BLOOD GASES A+C+; DEVICE NC; O2 FLOW 6 L/MIN; SITE LR; TOTAL RESP RATE 22 resp/min
[2017-06-19 22:16] LABS: CHLORIDE 91 mEq/L (99-109); POTASSIUM 5.7 mEq/L (3.7-5.4)
[2017-06-19 22:17] LABS: ALBUMIN 4.3 g/dL (3.2-4.8); MAGNESIUM 2.8 mg/dL (1.3-2.7); SODIUM 135 mEq/L (136-147)
[2017-06-19 22:19] LABS: GLUCOSE 154 mg/dL (70-99); TOTAL PROTEIN 7.2 g/dL (6.4-8.3)
[2017-06-19 22:21] LABS: TOTAL BILIRUBIN 0.4 mg/dL (0.0-1.0)
[2017-06-19 22:22] LABS: PHOSPHORUS 5.2 mg/dL (2.5-4.9)
[2017-06-19 22:23] LABS: ALKALINE PHOSPHATASE 118 IU/L (3-129); CREATININE 8.8 mg/dL (0.6-1.3); GFR ESTIMATE (CALCULATED) 7 mL/min/ (58.99-99999)
[2017-06-19 22:24] LABS: AST (GOT) 33 IU/L (2-34); UREA NITROGEN (BUN) 64 mg/dL (9-23)
[2017-06-19 22:26] LABS: ALT (GPT) 47 IU/L (3-49)
[2017-06-19 22:28] LABS: TROP-I INTERPRETATION NEGATIVE; TROPONIN-I < 0.01 ng/mL (0.0-0.30)
[2017-06-20] VITALS (9 sets, daily range): BP systolic 123–228; BP diastolic 63–109
[2017-06-20 06:04] LABS: HEMATOCRIT 29.9 % (38.0-50.0); MCH 31.3 PG (29.0-34.0); MCHC 32.4 G/DL (30.0-36.0); MCV 96.5 FL (86-99); PLATELET COUNT 135 K/uL (156-360); RBC DIS.WIDTH-CV 13.4 % (11.8-14.6); RBC DIS.WIDTH-SD 47.4 % (39-53); WHITE BLOOD COUNT 6.2 K/uL (4.1-10.2)
[2017-06-20 06:08] LABS: HEMOGLOBIN 9.7 G/DL (12.5-16.6)
[2017-06-20 06:18] LABS: ALBUMIN 3.9 G/DL (3.2-4.8); CHLORIDE 89 MEQ/L (99-109); CREATININE 8.9 MG/DL (0.6-1.3); GFR ESTIMATE (CALCULATED) 7 mL/min/ (58.99-99999); GLUCOSE 149 mg/dL (70-99); PHOSPHORUS 5.9 mg/dL (2.5-4.9); POTASSIUM 5.3 MEQ/L (3.7-5.4); SODIUM 135 MEQ/L (136-147); UREA NITROGEN (BUN) 67 mg/dL (9-23)
[2017-06-20 12:31] LABS: GLUCOSE 38 mg/dL (70-99)
[2017-06-20 13:42] LABS: BASOPHIL (%) 0.7 % (0-1); EOSINOPHIL COUNT 0.1 K/uL (0-0.3); HEMATOCRIT 41.5 % (38.0-50.0); HEMOGLOBIN 13.6 G/DL (12.5-16.6); IMMATURE GRANULOCYTE (%) 0.7 % (0.0-0.7); LYMPHOCYTE (%) 6.5 % (15-42); LYMPHOCYTE COUNT 0.4 K/uL (1.0-2.8); MCH 31.4 PG (29.0-34.0); MCHC 32.8 G/DL (30.0-36.0); MCV 95.8 FL (86-99); MONOCYTE (%) 6.4 % (3-12); MONOCYTE COUNT 0.4 K/uL (0-0.8); NEUTROPHIL (%) 83.7 % (45-76); PLATELET COUNT 152 K/uL (156-360); RBC DIS.WIDTH-CV 13.2 % (11.8-14.6); RBC DIS.WIDTH-SD 46.8 % (39-53); RED BLOOD COUNT 4.33 M/uL (4.00-5.50)
[2017-06-20 14:08] LABS: ALBUMIN 5.1 G/DL (3.2-4.8); ALKALINE PHOSPHATASE 103 IU/L (3-129); ALT (GPT) 37 IU/L (3-49); AST (GOT) 27 IU/L (2-34); CHLORIDE 96 MEQ/L (99-109); GLUCOSE 63 mg/dL (70-99); SODIUM 141 MEQ/L (136-147); TOTAL BILIRUBIN 0.7 MG/DL (0.0-1.0); TOTAL PROTEIN 7.8 G/DL (6.4-8.3)
[2017-06-20 14:17] LABS: CREATININE 4.2 MG/DL (0.6-1.3); GFR ESTIMATE (CALCULATED) 16 mL/min/ (58.99-99999); POTASSIUM 3.5 MEQ/L (3.7-5.4); UREA NITROGEN (BUN) 23 mg/dL (9-23)
[2017-06-21 01:07] VITALS: BP 150/68
[2017-06-21 03:15] VITALS: BP 159/78
[2017-06-21 06:13] LABS: BASOPHIL (%) 0.7 % (0-1); EOSINOPHIL (%) 2.2 % (0-5); EOSINOPHIL COUNT 0.1 K/uL (0-0.3); HEMATOCRIT 33.2 % (38.0-50.0); HEMOGLOBIN 10.9 G/DL (12.5-16.6); IMMATURE GRANULOCYTE (%) 0.3 % (0.0-0.7); LYMPHOCYTE (%) 12.2 % (15-42); LYMPHOCYTE COUNT 0.7 K/uL (1.0-2.8); MCH 31.3 PG (29.0-34.0); MCHC 32.8 G/DL (30.0-36.0); MCV 95.4 FL (86-99); MONOCYTE (%) 9.2 % (3-12); MONOCYTE COUNT 0.5 K/uL (0-0.8); NEUTROPHIL (%) 75.4 % (45-76); NEUTROPHIL COUNT 4.4 K/uL (1.8-6.4); PLATELET COUNT 153 K/uL (156-360); RBC DIS.WIDTH-CV 13.1 % (11.8-14.6); RBC DIS.WIDTH-SD 45.2 % (39-53); RED BLOOD COUNT 3.48 M/uL (4.00-5.50); WHITE BLOOD COUNT 5.9 K/uL (4.1-10.2)
[2017-06-21 06:46] LABS: CHLORIDE 91 MEQ/L (99-109); SODIUM 137 MEQ/L (136-147)
[2017-06-21 06:51] LABS: CREATININE 6.2 MG/DL (0.6-1.3); GFR ESTIMATE (CALCULATED) 11 mL/min/ (58.99-99999); GLUCOSE 204 mg/dL (70-99); POTASSIUM 4.5 MEQ/L (3.7-5.4); UREA NITROGEN (BUN) 47 mg/dL (9-23)
[2017-06-21 08:21] VITALS: BP 165/78
[2017-06-21 12:15] VITALS: BP 178/84
[2017-06-21 15:20] VITALS: BP 147/73
[2017-06-21 19:00] VITALS: BP 115/58
[2017-06-22] VITALS (8 sets, daily range): BP systolic 120–184; BP diastolic 60–90
[2017-06-22 06:26] LABS: BASOPHIL (%) 1.3 % (0-1); BASOPHIL COUNT 0.1 K/uL (0-0.1); EOSINOPHIL (%) 3.7 % (0-5); EOSINOPHIL COUNT 0.2 K/uL (0-0.3); HEMATOCRIT 34.4 % (38.0-50.0); HEMOGLOBIN 11.8 G/DL (12.5-16.6); IMMATURE GRANULOCYTE (%) 0.2 % (0.0-0.7); LYMPHOCYTE (%) 21.9 % (15-42); MCH 32.5 PG (29.0-34.0); MCHC 34.3 G/DL (30.0-36.0); MCV 94.8 FL (86-99); MONOCYTE (%) 12.9 % (3-12); MONOCYTE COUNT 0.6 K/uL (0-0.8); NEUTROPHIL COUNT 2.7 K/uL (1.8-6.4); PLATELET COUNT 169 K/uL (156-360); RBC DIS.WIDTH-CV 12.6 % (11.8-14.6); RBC DIS.WIDTH-SD 43.8 % (39-53); RED BLOOD COUNT 3.63 M/uL (4.00-5.50); WHITE BLOOD COUNT 4.6 K/uL (4.1-10.2)
[2017-06-22 06:32] LABS: CHLORIDE 93 MEQ/L (99-109); CREATININE 5.7 MG/DL (0.6-1.3); GFR ESTIMATE (CALCULATED) 12 mL/min/ (58.99-99999); GLUCOSE 193 mg/dL (70-99); POTASSIUM 4.3 MEQ/L (3.7-5.4); SODIUM 135 MEQ/L (136-147); UREA NITROGEN (BUN) 36 mg/dL (9-23)
[2017-06-23] VITALS (7 sets, daily range): BP systolic 135–192; BP diastolic 63–93
[2017-06-23 07:19] LABS: BASOPHIL (%) 1.7 % (0-1); BASOPHIL COUNT 0.1 K/uL (0-0.1); EOSINOPHIL (%) 5.2 % (0-5); EOSINOPHIL COUNT 0.2 K/uL (0-0.3); HEMATOCRIT 31.2 % (38.0-50.0); HEMOGLOBIN 10.5 G/DL (12.5-16.6); LYMPHOCYTE (%) 25.6 % (15-42); LYMPHOCYTE COUNT 1.2 K/uL (1.0-2.8); MCH 31.2 PG (29.0-34.0); MCHC 33.7 G/DL (30.0-36.0); MCV 92.6 FL (86-99); MONOCYTE (%) 11.2 % (3-12); MONOCYTE COUNT 0.5 K/uL (0-0.8); NEUTROPHIL (%) 56.3 % (45-76); NEUTROPHIL COUNT 2.6 K/uL (1.8-6.4); PLATELET COUNT 163 K/uL (156-360); RBC DIS.WIDTH-CV 12.4 % (11.8-14.6); RBC DIS.WIDTH-SD 42.8 % (39-53); RED BLOOD COUNT 3.37 M/uL (4.00-5.50); WHITE BLOOD COUNT 4.7 K/uL (4.1-10.2)
[2017-06-23 08:52] LABS: CHLORIDE 92 MEQ/L (99-109); CREATININE 7.9 MG/DL (0.6-1.3); GFR ESTIMATE (CALCULATED) 8 mL/min/ (58.99-99999); GLUCOSE 178 mg/dL (70-99); POTASSIUM 5.7 MEQ/L (3.7-5.4); SODIUM 132 MEQ/L (136-147); UREA NITROGEN (BUN) 60 mg/dL (9-23)
[2017-06-24 00:33] VITALS: BP 131/60
[2017-06-24 04:07] VITALS: BP 132/68
[2017-06-24 06:52] LABS: BASOPHIL (%) 1.8 % (0-1); BASOPHIL COUNT 0.1 K/uL (0-0.1); EOSINOPHIL (%) 5.3 % (0-5); EOSINOPHIL COUNT 0.2 K/uL (0-0.3); HEMATOCRIT 29.3 % (38.0-50.0); HEMOGLOBIN 9.8 G/DL (12.5-16.6); IMMATURE GRANULOCYTE (%) 0.5 % (0.0-0.7); LYMPHOCYTE (%) 24.8 % (15-42); MCHC 33.4 G/DL (30.0-36.0); MCV 92.7 FL (86-99); MONOCYTE (%) 8.8 % (3-12); MONOCYTE COUNT 0.4 K/uL (0-0.8); NEUTROPHIL (%) 58.8 % (45-76); NEUTROPHIL COUNT 2.4 K/uL (1.8-6.4); PLATELET COUNT 157 K/uL (156-360); RBC DIS.WIDTH-CV 12.3 % (11.8-14.6); RBC DIS.WIDTH-SD 42.6 % (39-53); RED BLOOD COUNT 3.16 M/uL (4.00-5.50)
[2017-06-24 07:02] LABS: CHLORIDE 92 MEQ/L (99-109); POTASSIUM 5.5 MEQ/L (3.7-5.4); SODIUM 133 MEQ/L (136-147)
[2017-06-24 07:24] LABS: GFR ESTIMATE (CALCULATED) 7 mL/min/ (58.99-99999); GLUCOSE 192 mg/dL (70-99); UREA NITROGEN (BUN) 76 mg/dL (9-23)
[2017-06-24 07:26] LABS: CREATININE 9.3 MG/DL (0.6-1.3)
[2017-06-24 07:30] VITALS: BP 174/68
[2017-06-24] MEDS ORDERED: APRESOLINE50 MG PO (08:07)
[2017-06-24] MEDS ORDERED: NIFEDIPINE ER60 MG PO (08:07)
[2017-06-24] MEDS ORDERED: LISINOPRIL40 MG PO (08:07)
[2017-06-24 12:20] VITALS: BP 162/82
== END 2017-06-24 13:40 | disposition home or self-care (01) | DRG 291 ==
LOC: EME 17:12 → EDOF 20:03 → 4EAST 20:03 → ENRESERV 20:06 → 4WEST 06-20 03:55 → ENRESERV 06-20 11:58 → 4EAST 06-20 12:42 → ENRESERV 06-23 20:27 → 5EAST 06-23 21:04 → ENPENDDIS 06-24 → 5EAST 06-24 13:40
PROVIDERS: Emergency Medicine; Hospitalist; Internal Medicine; Internal Medicine Nephrology; Student in an Organized Health Care Education/Training Program
PROC: 5A1D70Z Performance of Urinary Filtration, Intermittent, Less than 6 Hours Per Day (ICD-10-PCS; principal; 2017-06-20)
DX: I13.2 Hypertensive heart and chronic kidney disease with heart failure and with stage 5 chronic kidney disease, or end stage renal disease (principal); I50.23 Acute on chronic systolic (congestive) heart failure; E11.22 Type 2 diabetes mellitus with diabetic chronic kidney disease; N18.6 End stage renal disease; E11.649 Type 2 diabetes mellitus with hypoglycemia without coma; R68.0 Hypothermia, not associated with low environmental temperature; Y84.1 Kidney dialysis as the cause of abnormal reaction of the patient, or of later complication, without mention of misadventure at the time of the procedure; I16.0 Hypertensive urgency; E87.1 Hypo-osmolality and hyponatremia; E87.5 Hyperkalemia; E87.3 Alkalosis; D63.1 Anemia in chronic kidney disease; N25.81 Secondary hyperparathyroidism of renal origin; E11.42 Type 2 diabetes mellitus with diabetic polyneuropathy; E78.00 Pure hypercholesterolemia, unspecified; G40.909 Epilepsy, unspecified, not intractable, without status epilepticus; E78.5 Hyperlipidemia, unspecified; G89.29 Other chronic pain; M54.9 Dorsalgia, unspecified; I42.9 Cardiomyopathy, unspecified; J45.909 Unspecified asthma, uncomplicated; K21.9 Gastro-esophageal reflux disease without esophagitis; Z79.4 Long term (current) use of insulin; Z99.2 Dependence on renal dialysis; Z86.73 Personal history of transient ischemic attack (TIA), and cerebral infarction without residual deficits; Z79.82 Long term (current) use of aspirin
CPT/HCPCS: 36600; 71045; 71046; 73130; 80048; 80053; 80069; 81003; 82330; 82803; 82947; 82948; 83605; 83735; 83880; 84100; 84484; 85025; 85027; 87641; 93005; 94640; 94760; 94799; 99281; 99285; J0360; J0610; J0881; J1644; J1815; J1940; J2270; J2405; J3010; J7050

== ENCOUNTER 2017-07-24 17:05 | Inpatient (IN) | payer BC ==
[~2017-07-24] VITALS: Ht 172.7 cm; Wt 65.2 kg
[~2017-07-24 17:05] MED LIST changes: +APRESOLINE50 MG PO; +LISINOPRIL40 MG PO; +NEPHRO-VITE RX1 EACH PO; +NIFEDIPINE ER60 MG PO; +ZOFRAN4 MG PO
[2017-07-24 17:57] LABS: BASOPHIL (%) 1.3 % (0-1); BASOPHIL COUNT 0.1 K/uL (0-0.1); EOSINOPHIL (%) 5.1 % (0-5); EOSINOPHIL COUNT 0.2 K/uL (0-0.3); HEMATOCRIT 24.1 % (38.0-50.0); HEMOGLOBIN 8.2 G/DL (12.5-16.6); IMMATURE GRANULOCYTE (%) 0.3 % (0.0-0.7); LYMPHOCYTE (%) 16.5 % (15-42); LYMPHOCYTE COUNT 0.7 K/uL (1.0-2.8); MCH 32.4 PG (29.0-34.0); MCV 95.3 FL (86-99); MONOCYTE (%) 7.9 % (3-12); MONOCYTE COUNT 0.3 K/uL (0-0.8); NEUTROPHIL (%) 68.9 % (45-76); NEUTROPHIL COUNT 2.7 K/uL (1.8-6.4); PLATELET COUNT 169 K/uL (156-360); RBC DIS.WIDTH-CV 13.3 % (11.8-14.6); RBC DIS.WIDTH-SD 44.6 % (39-53); RED BLOOD COUNT 2.53 M/uL (4.00-5.50); WHITE BLOOD COUNT 3.9 K/uL (4.1-10.2)
[2017-07-24 18:06] LABS: ALBUMIN 3.6 g/dL (3.2-4.8); CHLORIDE 90 mEq/L (99-109); POTASSIUM 4.6 mEq/L (3.7-5.4); SODIUM 135 mEq/L (136-147)
[2017-07-24 18:09] LABS: GLUCOSE 203 mg/dL (70-99); TOTAL PROTEIN 6.3 g/dL (6.4-8.3)
[2017-07-24 18:11] LABS: TOTAL BILIRUBIN 0.5 mg/dL (0.0-1.0)
[2017-07-24 18:12] LABS: ALKALINE PHOSPHATASE 168 IU/L (3-129); CREATININE 7.7 mg/dL (0.6-1.3); GFR ESTIMATE (CALCULATED) 8 mL/min/ (58.99-99999)
[2017-07-24 18:13] LABS: UREA NITROGEN (BUN) 65 mg/dL (9-23)
[2017-07-24 18:14] LABS: AST (GOT) 28 IU/L (2-34)
[2017-07-24 18:15] LABS: ALT (GPT) 61 IU/L (3-49)
[2017-07-24 18:16] LABS: LIPASE 38 U/L (1.0-51.0)
[2017-07-24 18:18] LABS: TROP-I INTERPRETATION NEGATIVE; TROPONIN-I 0.01 ng/mL (0.0-0.30)
[2017-07-24] MEDS ORDERED: CALCIUM ACETAT667 MG PO (18:49)
[2017-07-24] MEDS ORDERED: GENTAMICIN SULF30 GM TP (18:50)
[2017-07-24] MEDS ORDERED: ERGOCALCIF50000 UNIT PO (18:51)
[2017-07-24] MEDS ORDERED: EXTRANEAL ICO2500 ML IP (18:52)
[2017-07-24] MEDS ORDERED: CALCITRIOL0.25 MCG PO ×2 (18:53)
[2017-07-24] MEDS ORDERED: ENULOSE10 GM/15 M PO (18:54)
[2017-07-24] MEDS ORDERED: SENNA8.6 MG PO (18:54)
[2017-07-24 22:22] VITALS: BP 148/77
[2017-07-25 01:09] LABS: TROP-I INTERPRETATION NEGATIVE; TROPONIN-I < 0.01 ng/mL (0.0-0.30)
[2017-07-25 03:52] VITALS: BP 128/67
[2017-07-25 06:37] LABS: TROP-I INTERPRETATION NEGATIVE; TROPONIN-I 0.02 ng/mL (0.0-0.30)
[2017-07-25 06:39] LABS: ALBUMIN 3.2 G/DL (3.2-4.8); ALKALINE PHOSPHATASE 135 IU/L (3-129); ALT (GPT) 45 IU/L (3-49); AST (GOT) 22 IU/L (2-34); CHLORIDE 93 MEQ/L (99-109); CREATININE 8.3 MG/DL (0.6-1.3); GFR ESTIMATE (CALCULATED) 8 mL/min/ (58.99-99999); GLUCOSE 122 mg/dL (70-99); POTASSIUM 4.6 MEQ/L (3.7-5.4); SODIUM 137 MEQ/L (136-147); TOTAL BILIRUBIN 0.4 MG/DL (0.0-1.0); TOTAL PROTEIN 5.5 G/DL (6.4-8.3); UREA NITROGEN (BUN) 68 mg/dL (9-23)
[2017-07-25 07:05] VITALS: BP 133/69
[2017-07-25 08:11] LABS: HEMATOCRIT 23.3 % (38.0-50.0); HEMOGLOBIN 7.8 G/DL (12.5-16.6); MCH 31.8 PG (29.0-34.0); MCHC 33.5 G/DL (30.0-36.0); MCV 95.1 FL (86-99); PLATELET COUNT 167 K/uL (156-360); RBC DIS.WIDTH-CV 13.5 % (11.8-14.6); RBC DIS.WIDTH-SD 44.8 % (39-53); RED BLOOD COUNT 2.45 M/uL (4.00-5.50); WHITE BLOOD COUNT 3.9 K/uL (4.1-10.2)
[2017-07-25 09:17] LABS: BASOPHIL (%) 1.3 % (0-1); BASOPHIL COUNT 0.1 K/uL (0-0.1); EOSINOPHIL (%) 6.5 % (0-5); EOSINOPHIL COUNT 0.3 K/uL (0-0.3); HEMATOCRIT 22.2 % (38.0-50.0); HEMOGLOBIN 7.6 G/DL (12.5-16.6); IMMATURE GRANULOCYTE (%) 0.3 % (0.0-0.7); LYMPHOCYTE (%) 18.2 % (15-42); LYMPHOCYTE COUNT 0.7 K/uL (1.0-2.8); MCH 32.8 PG (29.0-34.0); MCHC 34.2 G/DL (30.0-36.0); MCV 95.7 FL (86-99); MONOCYTE (%) 8.3 % (3-12); MONOCYTE COUNT 0.3 K/uL (0-0.8); NEUTROPHIL (%) 65.4 % (45-76); NEUTROPHIL COUNT 2.5 K/uL (1.8-6.4); PLATELET COUNT 160 K/uL (156-360); RBC DIS.WIDTH-CV 13.7 % (11.8-14.6); RBC DIS.WIDTH-SD 45.1 % (39-53); RED BLOOD COUNT 2.32 M/uL (4.00-5.50); WHITE BLOOD COUNT 3.8 K/uL (4.1-10.2)
[2017-07-25 09:18] LABS: ALBUMIN 3.5 G/DL (3.2-4.8); CHLORIDE 92 MEQ/L (99-109); CREATININE 8.3 MG/DL (0.6-1.3); GFR ESTIMATE (CALCULATED) 8 mL/min/ (58.99-99999); PHOSPHORUS 5.7 mg/dL (2.5-4.9); POTASSIUM 4.6 MEQ/L (3.7-5.4); SODIUM 133 MEQ/L (136-147); UREA NITROGEN (BUN) 74 mg/dL (9-23)
[2017-07-25 09:22] LABS: GLUCOSE 204 mg/dL (70-99)
[2017-07-25 15:30] VITALS: BP 136/69
[2017-07-25 20:31] VITALS: BP 107/54
[2017-07-26 00:55] VITALS: BP 121/64
[2017-07-26 07:05] VITALS: BP 136/68
[2017-07-26] MEDS ORDERED: BENADRYL25 MG PO (08:47)
[2017-07-26] MEDS ORDERED: REGLAN10 MG PO (08:48)
[2017-07-26 10:03] LABS: HEMATOCRIT 24.3 % (38.0-50.0); HEMOGLOBIN 8.1 G/DL (12.5-16.6); MCH 31.9 PG (29.0-34.0); MCHC 33.3 G/DL (30.0-36.0); MCV 95.7 FL (86-99); PLATELET COUNT 170 K/uL (156-360); RBC DIS.WIDTH-SD 45.3 % (39-53); RED BLOOD COUNT 2.54 M/uL (4.00-5.50); WHITE BLOOD COUNT 3.1 K/uL (4.1-10.2)
== END 2017-07-26 10:23 | disposition home or self-care (01) | DRG 73 ==
LOC: EME 17:05 → EDOF 21:28 → 5EAST 21:28 → ENRESERV 21:31 → 5EAST 22:20
PROVIDERS: Internal Medicine; Internal Medicine Nephrology; Physician Assistant
PROC: 5A1D70Z Performance of Urinary Filtration, Intermittent, Less than 6 Hours Per Day (ICD-10-PCS; principal; 2017-07-25)
DX: E11.43 Type 2 diabetes mellitus with diabetic autonomic (poly)neuropathy (principal); N18.6 End stage renal disease; K31.84 Gastroparesis; T85.611A Breakdown (mechanical) of intraperitoneal dialysis catheter, initial encounter; Y81.2 Prosthetic and other implants, materials and accessory general- and plastic-surgery devices associated with adverse incidents; R09.02 Hypoxemia; I13.2 Hypertensive heart and chronic kidney disease with heart failure and with stage 5 chronic kidney disease, or end stage renal disease; I50.32 Chronic diastolic (congestive) heart failure; E11.22 Type 2 diabetes mellitus with diabetic chronic kidney disease; D63.1 Anemia in chronic kidney disease; Z99.2 Dependence on renal dialysis; Z91.15 Patient's noncompliance with renal dialysis; Z86.73 Personal history of transient ischemic attack (TIA), and cerebral infarction without residual deficits; G40.909 Epilepsy, unspecified, not intractable, without status epilepticus; E78.5 Hyperlipidemia, unspecified; N25.81 Secondary hyperparathyroidism of renal origin; Z79.4 Long term (current) use of insulin; E11.21 Type 2 diabetes mellitus with diabetic nephropathy; I42.9 Cardiomyopathy, unspecified; L29.9 Pruritus, unspecified; Z79.82 Long term (current) use of aspirin; Z82.41 Family history of sudden cardiac death
CPT/HCPCS: 71046; 74176; 80053; 80069; 81003; 82948; 83690; 84484; 85025; 85027; 93005; 99281; 99285; J0881; J1270; J1644; J1756; J1940; J2270

== ENCOUNTER 2017-07-31 14:35 | Day surgery (SDC) | payer BC ==
[~2017-07-31] VITALS: Ht 182.9 cm; Wt 65.2 kg
[~2017-07-31 14:35] MED LIST changes: +ENULOSE10 GM/15 M PO; +EXTRANEAL ICO2500 ML IP; +GENTAMICIN SULF30 GM TP; +REGLAN10 MG PO; +SENNA8.6 MG PO
[2017-07-31 15:22] LABS: HEMATOCRIT 28.2 % (38.0-50.0); HEMOGLOBIN 9.3 G/DL (12.5-16.6); MCH 32.6 PG (29.0-34.0); MCV 98.9 FL (86-99); PLATELET COUNT 156 K/uL (156-360); RBC DIS.WIDTH-CV 15.9 % (11.8-14.6); RBC DIS.WIDTH-SD 55.6 % (39-53); RED BLOOD COUNT 2.85 M/uL (4.00-5.50); WHITE BLOOD COUNT 3.7 K/uL (4.1-10.2)
[2017-07-31 17:35] LABS: GLUCOSE 86 mg/dL (70-99); SODIUM 134 MEQ/L (136-147); UREA NITROGEN (BUN) 42 mg/dL (9-23)
[2017-07-31 17:36] LABS: CHLORIDE 75 MEQ/L (99-109); CREATININE 5.6 MG/DL (0.6-1.3); GFR ESTIMATE (CALCULATED) 12 mL/min/ (58.99-99999); POTASSIUM 3.5 MEQ/L (3.7-5.4)
[2017-07-31] MEDS ORDERED: NORCO 5/3251 TABLET PO (19:43)
[2017-07-31 20:35] VITALS: BP 180/86
[2017-07-31 21:45] VITALS: BP 195/99
[2017-07-31 22:55] VITALS: BP 190/90
[2017-07-31 23:20] VITALS: BP 192/88
[2017-08-01 03:43] VITALS: BP 169/87
[2017-08-01 10:39] VITALS: BP 165/80
== END 2017-08-01 10:50 | disposition home or self-care (01) ==
LOC: SDC 14:35 → 2SOUTH 21:32 → 2EAST 21:32 → ENRESERV 21:36 → 2EAST 22:26
PROVIDERS: Anesthesiology; Surgery
PROC: 0JWT33Z Revision of Infusion Device in Trunk Subcutaneous Tissue and Fascia, Percutaneous Approach (ICD-10-PCS; principal; 2017-07-31)
DX: T85.611A Breakdown (mechanical) of intraperitoneal dialysis catheter, initial encounter (principal); I12.0 Hypertensive chronic kidney disease with stage 5 chronic kidney disease or end stage renal disease; N18.6 End stage renal disease; Z99.2 Dependence on renal dialysis; Z86.73 Personal history of transient ischemic attack (TIA), and cerebral infarction without residual deficits; Z79.82 Long term (current) use of aspirin
CPT/HCPCS: 80048; 82948; 85027; 87081; 87641; 99202; G0378; J1170; J1815; J2405; J3010; S0020

== ENCOUNTER 2017-10-26 09:41 | Inpatient (IN) | payer BC ==
[2017-10-26] VITALS (9 sets, daily range): BP systolic 125–175; BP diastolic 58–81
[~2017-10-26] VITALS: Ht 172.7 cm; Wt 66.8 kg
[2017-10-26 10:32] LABS: HEMATOCRIT 18.9 % (38.0-50.0); MCH 32.5 PG (29.0-34.0); MCHC 33.3 G/DL (30.0-36.0); MCV 97.4 FL (86-99); PLATELET COUNT 237 K/uL (156-360); RBC DIS.WIDTH-CV 13.3 % (11.8-14.6); RBC DIS.WIDTH-SD 46.5 % (39-53); RED BLOOD COUNT 1.94 M/uL (4.00-5.50); WHITE BLOOD COUNT 5.6 K/uL (4.1-10.2)
[2017-10-26 10:38] LABS: HEMOGLOBIN 6.3 G/DL (12.5-16.6)
[2017-10-26 10:39] LABS: ALBUMIN 2.9 g/dL (3.2-4.8)
[2017-10-26 10:40] LABS: CHLORIDE 92 mEq/L (99-109); POTASSIUM 5.7 mEq/L (3.7-5.4); SODIUM 135 mEq/L (136-147)
[2017-10-26 10:42] LABS: GLUCOSE 211 mg/dL (70-99); TOTAL PROTEIN 5.9 g/dL (6.4-8.3)
[2017-10-26 10:44] LABS: TOTAL BILIRUBIN 0.5 mg/dL (0.0-1.0)
[2017-10-26 10:45] LABS: ALKALINE PHOSPHATASE 122 IU/L (3-129)
[2017-10-26 10:46] LABS: GFR ESTIMATE (CALCULATED) 6 mL/min/ (58.99-99999)
[2017-10-26 10:47] LABS: AST (GOT) 14 IU/L (2-34); UREA NITROGEN (BUN) 61 mg/dL (9-23)
[2017-10-26 10:48] LABS: ALT (GPT) 19 IU/L (3-49)
[2017-10-26 19:12] LABS: TROP-I INTERPRETATION NEGATIVE; TROPONIN-I 0.02 ng/mL (0.0-0.30)
[2017-10-27 00:31] LABS: TROP-I INTERPRETATION NEGATIVE; TROPONIN-I < 0.01 ng/mL (0.0-0.30)
[2017-10-27 04:01] VITALS: BP 120/56
[2017-10-27 06:25] LABS: BASOPHIL (%) 0.7 % (0-1); BASOPHIL COUNT 0.1 K/uL (0-0.1); EOSINOPHIL (%) 3.2 % (0-5); EOSINOPHIL COUNT 0.3 K/uL (0-0.3); HEMATOCRIT 22.6 % (38.0-50.0); HEMOGLOBIN 7.6 G/DL (12.5-16.6); IMMATURE GRANULOCYTE (%) 0.5 % (0.0-0.7); LYMPHOCYTE (%) 6.8 % (15-42); LYMPHOCYTE COUNT 0.6 K/uL (1.0-2.8); MCH 31.5 PG (29.0-34.0); MCHC 33.6 G/DL (30.0-36.0); MCV 93.8 FL (86-99); MONOCYTE (%) 9.1 % (3-12); MONOCYTE COUNT 0.8 K/uL (0-0.8); NEUTROPHIL (%) 79.7 % (45-76); NEUTROPHIL COUNT 6.9 K/uL (1.8-6.4); PLATELET COUNT 239 K/uL (156-360); RBC DIS.WIDTH-CV 14.6 % (11.8-14.6); RBC DIS.WIDTH-SD 49.8 % (39-53); WHITE BLOOD COUNT 8.7 K/uL (4.1-10.2)
[2017-10-27 06:32] LABS: RED BLOOD COUNT 2.41 M/uL (4.00-5.50)
[2017-10-27 06:47] LABS: ALBUMIN 2.9 G/DL (3.2-4.8); CHLORIDE 94 MEQ/L (99-109); CREATININE 9.4 MG/DL (0.6-1.3); GFR ESTIMATE (CALCULATED) 6 mL/min/ (58.99-99999); GLUCOSE 215 mg/dL (70-99); PHOSPHORUS 4.6 mg/dL (2.5-4.9); POTASSIUM 4.9 MEQ/L (3.7-5.4); SODIUM 135 MEQ/L (136-147); TROP-I INTERPRETATION NEGATIVE; TROPONIN-I 0.01 ng/mL (0.0-0.30); UREA NITROGEN (BUN) 59 mg/dL (9-23)
[2017-10-27 06:55] VITALS: BP 131/64
[2017-10-27 11:15] VITALS: BP 145/75
[2017-10-27 15:20] VITALS: BP 151/70
[2017-10-27 19:07] VITALS: BP 149/70
[2017-10-28] VITALS (7 sets, daily range): BP systolic 111–151; BP diastolic 53–72
[2017-10-28 09:51] LABS: HEMOGLOBIN A1c (GLYCOHEMOGLOB) 6.6 % (Below 5.7)
[2017-10-29] VITALS (7 sets, daily range): BP systolic 107–137; BP diastolic 53–72
[2017-10-29 08:31] LABS: HEMATOCRIT 24.7 % (38.0-50.0); HEMOGLOBIN 8.1 G/DL (12.5-16.6); MCV 95.4 FL (86-99)
[2017-10-30 01:40] VITALS: BP 113/53
[2017-10-30 07:30] VITALS: BP 140/66
[2017-10-30] MEDS ORDERED: CEFTIN500 MG PO (12:04)
== END 2017-10-30 14:07 | disposition home or self-care (01) | DRG 193 ==
LOC: EME 09:41 → 5EAST 14:13 → EDOF 14:13 → ENRESERV 14:14 → 5EAST 15:16
PROVIDERS: Internal Medicine; Nurse Practitioner Family
PROC: 3E1M39Z Irrigation of Peritoneal Cavity using Dialysate, Percutaneous Approach (ICD-10-PCS; principal; 2017-10-26)
PROC: 30233N1 Transfusion of Nonautologous Red Blood Cells into Peripheral Vein, Percutaneous Approach (ICD-10-PCS; 2017-10-26)
DX: J18.9 Pneumonia, unspecified organism (principal); E87.5 Hyperkalemia; E87.1 Hypo-osmolality and hyponatremia; D63.1 Anemia in chronic kidney disease; N25.81 Secondary hyperparathyroidism of renal origin; I13.2 Hypertensive heart and chronic kidney disease with heart failure and with stage 5 chronic kidney disease, or end stage renal disease; E11.22 Type 2 diabetes mellitus with diabetic chronic kidney disease; N18.6 End stage renal disease; Z99.2 Dependence on renal dialysis; I50.9 Heart failure, unspecified; E11.21 Type 2 diabetes mellitus with diabetic nephropathy; E11.42 Type 2 diabetes mellitus with diabetic polyneuropathy; R18.8 Other ascites; I42.9 Cardiomyopathy, unspecified; R09.02 Hypoxemia; E55.9 Vitamin D deficiency, unspecified; E78.5 Hyperlipidemia, unspecified; G40.909 Epilepsy, unspecified, not intractable, without status epilepticus; K21.9 Gastro-esophageal reflux disease without esophagitis; Z86.73 Personal history of transient ischemic attack (TIA), and cerebral infarction without residual deficits
CPT/HCPCS: 71046; 74176; 80048; 80053; 80069; 81003; 82948; 83036; 83605; 84484; 85014; 85018; 85025; 85027; 86850; 86900; 86901; 86920; 87040; 93005; 94799; 99281; 99285; J0360; J0696; J0881; J1644; J1815; J7030; P9016